=== PATIENT | female | born 1985 | race Caucasian/White ===

== ENCOUNTER → 2020-10-29 09:24 | Outpatient (BNVA) | payer OTHER, SELFPAY | PROVIDERS: PCP Family Medicine Adult Medicine; Visit Provider Surgery ==

== ENCOUNTER 2020-11-19 10:58 | Outpatient (REF) | payer OTHER, SELFPAY ==
--- NOTE | ~2020-11-19 | MR_ITS ---
EXAMINATION: MR BREAST WITHOUT AND WITH CONTRAST, BILATERAL CLINICAL INFORMATION: High risk screening. COMPARISON: Portions of a previous study 11/22/2019 Mammography (nondiagnostic monitor review): 11/24/2019. TECHNIQUE: A 1.5 T system and a dedicated breast coil. T1-weighted sequences without fat-saturation were obtained prior to the administration of contrast. Fat-saturated T1 and T2-weighted sequences were also acquired. The patient received 10 mL of IV gadolinium-based contrast, Gadavist. Multiple sequential dynamic T1-weighted sequences were obtained through both breasts with fat-saturation. Subtracted images were reviewed. CAD postprocessing with 3-D reconstructions, maximum intensity projections and kinetic analysis was performed by the interpreting Radiologist at an independent workstation and reviewed as a portion of this exam. The patient reported slight nausea without vomiting after the injection. FINDINGS: Amount of Remaining Fibroglandular Signal: There are scattered areas of fibroglandular tissue (ACR BI-RADS breast composition category B).* Background Parenchymal Enhancement: Mild Symmetry of Background Enhancement: Symmetric RIGHT BREAST: There are no suspicious findings. Masses: There are no suspicious enhancing masses. Non-mass Enhancement: There is no suspicious non-mass enhancement. Focus: There are no suspicious enhancing foci. Non-enhancing Findings: Associated Findings: There are no suspicious associated findings. Kinetic Curve Assessment: Initial Phase: There are no suspicious areas of color signal. Delayed Phase: There are no areas of washout kinetics. LEFT BREAST: There are no suspicious findings. Masses: There are no suspicious enhancing masses. Non-mass Enhancement: There is no suspicious non-mass enhancement. Focus: There are no suspicious enhancing foci. Non-enhancing Findings: Associated Findings: There are no suspicious associated findings. Kinetic Curve Assessment: Initial Phase: There are no areas of suspicious color signal. Delayed Phase: There are no areas of washout kinetics. The axillary lymph nodes are morphologically normal. No suspicious internal mammary lymph nodes are seen. No suspicious abnormality in the visualized portions of chest or abdomen. There may be a small cyst or ganglion in the right spinal glenoid notch. MR/MR breast BI wo/w con IMPRESSION: No MR evidence of malignancy. ASSESSMENT: Right Breast: ACR BI-RADS 1: Negative examination. Left Breast: ACR BI-RADS 1: Negative examination. RECOMMENDATIONS: Continue screening.
== END 2020-11-19 10:59 | disposition home or self-care (01) ==
LOC: HO.MRI 10:58
PROVIDERS: Visit Provider Surgery
DX: Z12.39 Encounter for other screening for malignant neoplasm of breast (principal); Z91.89 Other specified personal risk factors, not elsewhere classified
CPT/HCPCS: 77049; A9585

== ENCOUNTER 2021-02-25 09:47 | Outpatient (REF) | payer OTHER, SELFPAY ==
--- NOTE | ~2021-02-25 | MM_ITS ---
EXAMINATION: MM SCREENING DIGITAL BREAST TOMOSYNTHESIS, BILATERAL CLINICAL INFORMATION: Screening. Asymptomatic. Family history breast cancer, 2 aunts, one premenopausal age 40. The lifetime risk of breast cancer based on the Tyrer-Cuzick Model is 19%. COMPARISON: Mammography: 11/24/2019; MRI breasts 11/19/2020 TECHNIQUE: Digital breast tomosynthesis is performed in both the craniocaudal and mediolateral oblique views along with computer-aided detection (CAD). Synthesized 2D images are generated from the tomosynthesis. FINDINGS: There are scattered areas of fibroglandular density (ACR BI-RADS breast composition Category b). Parenchymal pattern is similar to prior exam. There is no significant mass or architectural abnormality or abnormal calcifications. The axilla and skin contours are unremarkable. MM/MM tomosynthesis screening BI IMPRESSION: No mammographic evidence of malignancy. ASSESSMENT: BI-RADS 1: Negative RECOMMENDATION: Routine annual mammography screening. This patient's information was entered into a reminder system with a target due date for their next mammogram.
== END 2021-02-25 09:48 | disposition home or self-care (01) ==
LOC: HO.MAMMO 09:47
PROVIDERS: Visit Provider Surgery
DX: Z12.31 Encounter for screening mammogram for malignant neoplasm of breast (principal)
CPT/HCPCS: 77063; 77067

== ENCOUNTER → 2021-11-25 10:41 | Outpatient (BNVA) | payer OTHER, SELFPAY | PROVIDERS: Visit Provider Surgery | DX: Z12.39 Encounter for other screening for malignant neoplasm of breast (principal); Z91.89 Other specified personal risk factors, not elsewhere classified ==

== ENCOUNTER 2022-01-07 13:19 | Outpatient (REF) | payer OTHER, SELFPAY ==
--- NOTE | ~2022-01-07 | MR_ITS ---
EXAMINATION: MR BREAST WITHOUT AND WITH CONTRAST, BILATERAL CLINICAL INFORMATION: 36-year-old for high-risk screening family history 2 aunts. COMPARISON: MRI 11/19/2020, 11/22/2019 and 11/10/2018. TECHNIQUE: Imaging was performed with a dedicated breast coil. Prior to the administration of contrast, bilateral axial T1 and bilateral axial T2 weighted sequences were obtained. After the uneventful administration of?9 mL of Gadavist, dynamic contrast-enhanced VIBRANT series through the breasts in the axial plane were performed. Subtracted images were performed and reviewed. A delayed sagittal sequence through both breasts was acquired. Additionally, CAD post-processing, including maximum intensity projections, 3-D reconstructions and kinetic analysis, were performed an independent workstation and reviewed by the interpreting radiologist is a portion of this exam. FINDINGS: The patient's fibroglandular tissue demonstrates minimal background enhancement. LEFT BREAST: There is a stable focus of enhancement at 9 o'clock 6.4 cm from the nipple. There are a few other scattered enhancing foci, which appear stable from prior studies. There are no new areas of mass or nonmass enhancement suspicious of malignancy. There are no secondary signs of malignancy such as nipple inversion or duct enhancement. There are no additional findings on T2-weighted imaging or kinetic curve analysis. RIGHT BREAST: There are a few scattered foci of enhancement also stable when compared to prior studies. The mildly prominent area of nonmass enhancement at 2 o'clock noted on the study of 11/22/2019 is not perceived at this time. There are no new areas of mass or nonmass enhancement suspicious of malignancy. There are no secondary signs of malignancy such as nipple inversion or duct enhancement. There are no additional findings on T2-weighted imaging or kinetic curve analysis. There is no suspicious internal mammary chain or axillary adenopathy. Limited views of the chest and abdomen are unremarkable. MR/MR breast BI wo/w con IMPRESSION: No MR specific evidence of malignancy. ASSESSMENT: LEFT BREAST: BI-RADS 2 benign. RIGHT BREAST: BI-RADS 2 benign. RECOMMENDATIONS: Routine mammographic imaging as per most recent study and MRI as per high-risk protocol.
== END 2022-01-07 13:20 | disposition home or self-care (01) ==
LOC: HO.MRI 13:19
PROVIDERS: Visit Provider Surgery
DX: Z91.89 Other specified personal risk factors, not elsewhere classified (principal); Z80.3 Family history of malignant neoplasm of breast
CPT/HCPCS: 77049; A9585

== ENCOUNTER 2022-03-12 07:50 | Outpatient (REF) | payer OTHER, SELFPAY ==
--- NOTE | ~2022-03-12 | MM_ITS ---
EXAMINATION: MM SCREENING DIGITAL BREAST TOMOSYNTHESIS, BILATERAL CLINICAL INFORMATION: Screening. Asymptomatic. The lifetime risk of breast cancer based on the Tyrer-Cuzick Model is 14%. COMPARISON: Mammography: 02/25/2021, 11/24/2019; MR bilateral breasts 01/07/2022 TECHNIQUE: Digital breast tomosynthesis is performed in both the craniocaudal and mediolateral oblique views along with computer-aided detection (CAD). Synthesized 2D images are generated from the tomosynthesis. Additional bilateral CC views are provided. FINDINGS: There are scattered areas of fibroglandular density (ACR BI-RADS breast composition Category b). There are no significant masses, abnormal calcifications, or other abnormalities. There is no developing density or architectural abnormality. The axilla and skin contours are unremarkable. No significant changes. MM/MM tomosynthesis screening BI IMPRESSION: No mammographic evidence of malignancy. ASSESSMENT: BI-RADS 1: Negative RECOMMENDATION: Routine annual mammography screening. This patient's information was entered into a reminder system with a target due date for their next mammogram.
== END 2022-03-12 07:51 | disposition home or self-care (01) ==
LOC: HO.MAMMO 07:50
PROVIDERS: PCP Surgery; Visit Provider Surgery
DX: Z12.31 Encounter for screening mammogram for malignant neoplasm of breast (principal)
CPT/HCPCS: 77063; 77067

== ENCOUNTER 2022-04-29 08:46 | Outpatient (REF) | payer OTHER, SELFPAY ==
[2022-04-29 10:28] LABS: Hematocrit 37.4 % (37.0-47.0); Hemoglobin 12.5 g/dl (12.0-16.0); Mean Corpuscular HGB Conc 33.4 g/dl (31.0-35.0); Mean Corpuscular Hemoglobin 30.5 pg (27.0-33.0); Mean Corpuscular Volume 91.2 fL (80.0-98.0); Mean Platelet Volume 11.9 fL (9.4-12.3); Platelet Count 193 X10*3/uL (160-400); Red Cell Distribution Width 12.6 % (11.0-16.0); White Blood Count 7.1 X10*3/uL (4.8-10.8)
[2022-04-29 10:46] LABS: Alanine Aminotransferase 8 U/L (0-31); Albumin Level 4.1 g/dL (3.5-5.0); Alkaline Phosphatase 54 U/L (39-117); Anion Gap 13 (12-20); Aspartate Amino Transferase 12 U/L (5-31); Bilirubin Total 0.4 mg/dL (0.0-1.0); Blood Urea Nitrogen 12 mg/dL (9-16); Calcium 9.2 mg/dL (8.4-10.2); Carbon Dioxide 26 mmol/L (22-29); Chloride 104 mmol/L (96-108); Cholesterol 227 mg/dL; Estimated Glomerular Filt Rate > 60; Glucose Fasting 95 mg/dL (60-99); HDL Cholesterol 51 mg/dL; LDL Cholesterol Calculated 163 mg/dl; Potassium 4.2 mmol/L (3.3-5.1); Sodium 139 mmol/L (135-145); Total Protein 6.7 g/dL (6.5-8.0); Triglycerides 66 mg/dL
[2022-04-29 11:08] LABS: TSH reflex Free T4 1.37 uIU/mL (0.32-4.0)
== END 2022-04-29 08:47 | disposition home or self-care (01) ==
LOC: HO.WFDLDS 08:46
PROVIDERS: Visit Provider Hospitalist
DX: Z00.00 Encounter for general adult medical examination without abnormal findings (principal)
CPT/HCPCS: 36415; 80053; 80061; 84443; 85027

== ENCOUNTER → 2022-12-17 13:48 | Outpatient (BNVA) | payer OTHER, SELFPAY | PROVIDERS: PCP Hospitalist; Visit Provider Surgery | DX: Z13.89 Encounter for screening for other disorder (principal) ==

== ENCOUNTER 2023-07-08 09:29 | Outpatient (AMB) | payer OTHER, SELFPAY ==
--- NOTE | 2023-07-08 09:50 | A.OFFVIS_ITS ---
Intake Vital Signs 07/08/23 09:57 Height 5 ft Weight 213 lb BMI 41.6 BP 124/56 L Blood Pressure Location Lt brachial Position Sitting Pulse 51 Intake Visit Reasons: 6 month breast exam Intake Note: Patient is seen in office for 6 month follow up visit, breast exam. Patient c/o: has mammogram scheduled for 11/2023 did not have one this year since she was nursing, denies any concerns regarding the breast Claim Attorney Required: No Accompanied by: Self / Same As Patient Allergies amoxicillin Allergy (Unknown, Verified 07/08/23 09:57) rash naproxen Allergy (Unknown, Unverified 07/08/23 09:57) asthma exacerbation Latex Allergy (Unknown, Uncoded 07/08/23 09:57) Unknown Medication List - Last Reconciled 07/08/23 by Myron Arredondo MD No Known Home Meds HPI HPI Comments History of Present Illness Details 38-year-old female patient of Dr. Janki ramires and Dr. Cedeño presenting for a high risk breast screening examination.? Her lifetime risk based upon Tyrnelly Piedrak was determined to be at 28.3%, therefore she was placed on a high risk protocol.? Her paternal aunt was diagnosed with breast cancer at the age of 40, and a 2nd paternal aunt was diagnosed with malignant melanoma at the age of 17 and she was also diagnosed recently with cancer of the eye, and 2 maternal great aunts were diagnosed with breast cancer at the ages of 60 and 80 respectively.? Genetic testing on her paternal aunt with breast cancer revealed no deleterious? 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 The patient has never undergone genetic testing. Patient underwent routine mammography on 03/12/2022 which revealed no mammographic evidence of malignancy (BI-RADS 1).? Bilateral breast MRI performed on 01/07/2022 revealed no concerning MR findings (BiRADS 2). She delivered her baby 1 month early due to preeclampsia (5 lb) and is not undergone mammogram or MRI as she was nursing up until recently. She is scheduled for a mammogram 11/11/2023. She is due for a breast MRI as well. She feels well and denies any ongoing breast symptoms. Her baby is now 8-month-old and doing well. [facility] Medical History At high risk for breast cancer Surgical History History of section History of ankle surgery (2006) Family History Father No problems noted. 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 Current occupational exposures/hazards: No Cognitive needs: No Hearing needs: No Vision needs: No Review of Systems Const Denies chills, Denies fever(s), Denies headache(s) and Denies poor appetite ENT Denies dizziness and Denies headache(s) Card Denies chest pain, Denies rapid heart rate, Denies palpitations and Denies slow heart rate Resp Denies chest congestion, Denies cough, Denies pain on inspiration and Denies wheezing GI Denies abdominal pain, Denies bloating, Denies change in stool character, Denies constipation, Denies diarrhea, Denies nausea, Denies vomiting and Denies hematemesis Denies nipple discharge Musc Denies back pain, Denies arthralgias, Denies joint swelling and Denies numbness Skin/Breast Denies breast swelling, Denies breast skin changes, Denies breast pain, Denies breast mass, Denies change in breast shape, Denies change in pigmentation, Denies nipple discharge, Denies erythema and Denies rash Neuro Denies dizziness, Denies headache(s) and Denies numbness Psych Denies anxiety and Denies depression Endo Denies palpitations Rashi/Lymph Denies easy bleeding, Denies easy bruising and Denies lymphadenopathy Aller/Immun Denies wheezing Physical Exam Vital Signs: Last Vital Signs Pulse 51 07/08/23 09:57 BP 124/56 L 07/08/23 09:57 BMI result Body Mass Index 41.6 Const General: cooperative, healthy appearing, comfortable, no acute distress and well developed Orientation/consciousness: patient oriented x3 Eyes Sclerae: sclerae normal EOM: EOMs intact bilaterally Chest Other: Left breast: No skin change, no nipple retraction, no nipple discharge, no palpable mass, no enlarged lymph nodes. Breast tissue is dense. Right breast: No skin change, no nipple retraction, no nipple discharge, no pal pable mass, no enlarged lymph nodes. Breast tissue is dense. Resp Effort & Inspection: normal respiratory effort, no stridor and not tachypneic Cardio Jugular venous distension: no JVD GI Inspection: Yes normal to inspection Skin General skin exam: no rashes or lesions noted, dry skin and no erythema Neuro General: patient oriented x3 and gait normal Extrem General: Yes no clubbing, cyanosis or edema Assessment & Plan Assessment & Plan (1) At high risk for breast cancer: Code(s): Z91.89 - Other specified personal risk factors, not elsewhere classified Plan: 38-year-old female patient felt to be at high risk for malignancy of the breast presenting today for a screening breast examination. Examination today reveals no suspicious findings in either breast. She is now due for her yearly mammogram and MRI. A mammogram has been scheduled for 11/11/2023. I will also place an order for a breast MRI. I also discussed genetic testing including the risks and benefits and she is agreeable to this. She will return for this testing at her earliest convenience. She should continue her monthly self examination and return in 6 months for follow-up breast examination, sooner p.r.n.. Orders: Orders MR breast BI wo/w con Today Z91.89 - Other specified personal risk factors, not elsewhere classified Coding Level of Care Code Est Pt Level 3 (98156) Diagnoses At high risk for breast cancer Z91.89
[2023-07-08 09:57] VITALS: BP 124/56; PULSE 51; BMI 41.6
== END 2023-07-08 10:18 | disposition home or self-care (01) ==
PROVIDERS: PCP Hospitalist; Visit Provider Surgery
DX: Z80.3 Family history of malignant neoplasm of breast (principal); Z91.89 Other specified personal risk factors, not elsewhere classified
CPT/HCPCS: 99213

== ENCOUNTER → 2023-07-08 09:29 | Outpatient (BNVA) | payer OTHER, SELFPAY | PROVIDERS: PCP Hospitalist; Visit Provider Surgery ==

== ENCOUNTER 2023-07-22 14:43 | Outpatient (AMB) | payer OTHER, SELFPAY ==
--- NOTE | 2023-07-22 14:46 | A.OFFPC_ITS ---
Vital Signs 07/22/23 14:47 Height 5 ft Weight 213 lb 8 oz BMI 41.7 BP 124/70 Blood Pressure Location Lt brachial Position Sitting Respiration 12 Pulse 80 Pulse Source Pulse Oximeter Temp 97.6 F Temp Source Temporal Artery Scan Pulse Oximetry (%) 99 Oxygen Delivery Method Room Air Intake Visit Reasons: Transfer of care, req PE Flame Hardener Required: No Accompanied by: Self / Same As Patient Allergies amoxicillin Allergy (Unknown, Verified 07/22/23 15:24) rash naproxen Allergy (Unknown, Verified 07/22/23 15:24) asthma exacerbation Latex Allergy (Unknown, Uncoded 07/22/23 15:24) Unknown Medication List - Last Reconciled 07/22/23 by Bin Urbina CNP No Known Home Meds Tobacco use date assessed: 07/22/23 Dental Screening Dental Screen Date: 07/22/23 Did you have a dental visit in the last 12 months?: Yes Did you have a dental problem in the last 6 months where you did not have access to dental care?: No Was dental information given to patient?: Patient has dentist HPI HPI Comments History of Present Illness Details 38-year-old female presents for transfer of care Her former PCP was CHASTITY who is no longer with the practice. Her last office visit and blood work was over a year ago Reports h/o asthma (severe at childhood) and preeclampsia Not on prescription medications She offers no complaints and denies acute symptoms at this time She notes that she has not been making healthy dietary choices. She has not been exercising due to her busy work schedule History of breast cancer on both sides of her family which put her at high risk for breast cancer. Her last mammogram and breasts MRI was in 2021: Normal. Her next mammogram and breasts MRI is in 10/2022 [facility] Medical History (Updated 07/22/23 @ 15:33 by Bin Urbina CNP) Asthma Preeclampsia At high risk for breast cancer Surgical History History of section History of ankle surgery (2006) Family History Father No problems noted. 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 1. Little interest or pleasure in doing things: not at all 2. Feeling down, depressed, or hopeless: not at all 3. Trouble falling or staying asleep, or sleeping too much: not at all 4. Feeling tired or having little energy: not at all 5. Poor appetite or overeating: not at all 6. Feeling bad about yourself - or that you are a failure or have let yourself or your family down: not at all 7. Trouble concentrating on things, such as reading the newspaper or watching television: not at all 8. Moving or speaking so slowly that other people could have noticed. Or the opposite - being so fidgety or restless that you have been moving around a lot more than usual: not at all 9. Thoughts that you would be better off or of hurting yourself in some way: not at all Total score: 0 Depression Screening Interpretation: Negative Depression Screening Done: Yes 68113 - PHQ-9 Billing: Yes Source: Developed by Drs. Silviano Queen, Jackie Mansfield, Moises Headley and colleagues, with an educational daxa from [employer]. Thrive Questionnaire Date Thrive assessed: 07/22/23 I am a: Patient What is your living situation today?: I have a steady place to live Within the past 12 months, did the food you bought not last and you didn't have the money to get more?: Never true Within the past 12 months, did you worry whether your food would run out before you got money to buy more?: Never true Do you have trouble paying for medicines?: No Do you have trouble getting transportation to medical appointments?: No Do you have trouble paying your heating and electricity bill?: No Do you have trouble taking care of your child, family member or friend?: No Do you have trouble with day-to-day activities such as bathing, preparing meals, shopping, managing finances, etc.?: No Are you currently unemployed and looking for a job?: No Are you interested in more education?: Yes Please select the resources that you would like help with: Education Currently or been in a relationship where the following occur: no concerns reported AUDIT C Alcohol Use Questionnaire (AUDIT-C) 1. How often do you have a drink containing alcohol?: Never 3. How often do you have six or more drinks on one occasion?: Never Total Score: 0 CARL-7 AMB Questionnaire CARL-7 Date CARL - 7 assessed: 07/22/23 Feeling nervous, anxious, or on edge: 0 = Not at all Not being able to stop or control worryin = Not at all Worrying too much about different things: 0 = Not at all Trouble relaxin = Not at all Being so restless that it is hard to sit still: 0 = Not at all Becoming easily annoyed or irritable: 0 = Not at all Feeling afraid as if something awful might happen: 0 = Not at all Total CARL-7 score (0-4 normal; 5-9 mild; 10-14 moderate; 15-21 severe): 0 Source: Developed by Drs. Silviano Queen, Jackie Mansfield, Moises Headley and colleagues, with an educational daxa from [employer]. CARL-7 Assessment Billing CARL-7 Assessment Tool: CARL-7 Assessment 91913 ACT Questionnaire In the past 4 weeks, how much of the time did your asthma keep you from getting as much done at work, school or at home?: None of the time During the past 4 weeks, how often have you had shortness of breath?: Not at all During the past 4 weeks, how often did your asthma symptoms wake you up at night or earlier than usual in the morning?: Not at all During the past 4 weeks, how often have you had to use your rescue inhaler or nebulizer medication?: Not at all How would you rate your asthma control during the past 4 weeks?: Completely controlled ACT Interpretation: Negative Score: 25 Review of Systems Const Details: Denies chills, Denies fatigue, Denies fever(s), Denies headache(s) and Denies weakness HEENT Denies change in vision, Denies dizziness, Denies headache(s), Denies hearing loss, Denies nasal congestion, Denies sinus pain, Denies sinus pressure and Denies sore throat Card Denies chest pain, Denies lightheadedness, Denies dyspnea and Denies other (palpitations) Resp Denies cough, Denies dyspnea and Denies wheezing GI Denies abdominal pain, Denies melena, Denies hematochezia, Denies change in bowel habits, Denies dyspepsia and Denies nausea Denies hematuria and Denies dysuria Musc Denies abnormal gait, Denies myalgias, Denies arthralgias, Denies numbness and Denies tingling Skin/Breast Denies rash, Denies unusual bruising and Denies wounds Neuro Denies abnormal gait, Denies dizziness, Denies headache(s), Denies memory loss, Denies numbness, Denies Sensory deficit (Neuro), Denies tingling and Denies weakness Psych Denies anxiety, Denies depression and Denies memory loss Endo Denies cold intolerance, Denies fatigue, Denies heat intolerance, Denies polydipsia and Denies polyuria Rashi/Lymph Denies easy bleeding and Denies easy bruising Aller/Immun Denies wheezing Physical exam (Primary Care) Vital Signs: Last Vital Signs Temp 97.6 F 07/22/23 14:47 Pulse 80 07/22/23 14:47 Resp 12 07/22/23 14:47 BP 124/70 07/22/23 14:47 Pulse Ox 99 07/22/23 14:47 Oxygen Delivery Method Room Air 07/22/23 14:47 BMI result Body Mass Index 41.7 Tobacco/Smoking Status: Tobacco use Status Tobacco use date assessed 07/22/23 07/22/23 15:00 Patient Tobacco Use Status Former Tobacco user 07/22/23 15:00 Tobacco use type Cigarette 07/22/23 15:00 e-Cigarette/Vaping Use Never Used 07/22/23 15:00 PHQ-9: PHQ-9 Score PHQ-9: Total score 0 07/22/23 15:00 Depression Screening Interpretation: Negative Thrive Assessment: Date of Thrive Assessment Date Thrive assessed 07/22/23 07/22/23 15:00 Currently or been in a relationship where the following occur: no concerns reported Const Other: General: no acute distress, well developed, alert and awake Nutritional Appearance: well nourished Orientation/consciousness: patient oriented x3 [facility] Head: Yes normocephalic and Yes atraumatic Ears: hearing grossly normal bilaterally and TM's normal bilaterally General nose exam: Normal external nose present and Normal nares present Mouth: Normal oral and palatal mucosa present and moist mucous membranes Teeth and gingiva: dentition normal Throat: Yes oropharynx normal Eyes Pupils: Equal, round and reactive pupils present and Pupil accommodation reflex normal EOM: EOMs intact bilaterally Neck Neck: Yes normal visual inspection, Yes no lymphadenopathy and Yes trachea midline Thyroid: Thyroid normal Carotids: no bruits Lymphatic: no lymphadenopathy noted Chest Chest palpation & inspection: normal inspection of the chest Resp Effort & Inspection: normal respiratory effort Auscultation: clear to auscultation bilaterally Cardio Rate: regular rate Rhythm: regular rhythm Heart sounds: S1 normal heart sound present, S2 normal heart sound present, no gallops, no murmurs and no rubs Bruits: no abdominal aortic bruits and no carotid bruits GI Palpation (GI): No Abdominal aortic bruit present, Soft to palpation, nontender, No hepatosplenomegaly present and No Rebound tenderness present Auscultation: normal bowel sounds General: Yes no CVA tenderness Back/Spine/Pelvis Back: no CVA tenderness Cervical Spine: cervical ROM normal and No Cervical spine tenderness Thoracic/Lumbar Spine: thoraco-lumbar ROM normal, No pain with thoraco-lumbar ROM, No thoracic spinal tenderness and No lumbar spinal tenderness Skin General: warm and dry. Normal skin color. Normal skin turgor Lesions: no lesions Rashes: no rashes Trauma: no lacerations or abrasions Wounds: no wounds Nails: normal Neuro General: patient oriented x3, gait normal and CN's II-XI intact bilaterally Cranial nerves: Yes Equal, round and reactive pupils present Cognition (Neuro): normal cognition Gait exam (Neuro): Normal gait present Motor exam (neuro): 5/5 motor strength present throughout Sensory Exam: No Sensory deficit (Neuro) Deep tendon reflexes (DTR's): Right patellar reflex intensity grade: 2+ and Left patellar reflex intensity grade: 2+ Extrem General: Yes normal to inspection, No edema and No calf tenderness Psych Appearance: grossly normal Affect: normal affect Attitude: cooperative Thought process: Normal thought process present Assessment and Plan Assessment & Plan (1) Normal physical exam: Code(s): Z00.00 - Encounter for general adult medical examination without abnormal findings Plan: No significant physical restrictions or limitations noted Advised to get routine fasting blood work done and schedule a telehealth visit in 2-4 weeks for labs review Return with symptoms or concerns Verbalized understanding and agreed with treatment plan (2) Morbid obesity with BMI of 40.0-44.9, adult: Code(s): E66.01 - Morbid (severe) obesity due to excess calories; Z68.41 - Body mass index [BMI] 40.0-44.9, adult Plan: She weighs 213 lb, BMI is 41.7 She has not been making healthy dietary choices or exercising Declines referral to dietitian/nutritionis or weight management Healthy diet and routine exercise encouraged She make contact her PCP if she needs assistance with weight loss Verbalized understanding and agreed with plan. (3) Laboratory tests ordered as part of a complete physical exam (CPE): Code(s): Z00.00 - Encounter for general adult medical examination without abnormal findings Plan: Fasting labs ordered as part of a complete physical exam. Advised to fast for at least 10 hours before getting labs drawn. May drink water Verbalized understanding and agreed with treatment plan. Orders: Orders Complete Blood Count Auto Diff Today Z00.00 - Encounter for general adult medical examination without abnormal findings Comprehensive [place]. Panel Fast Today Z00.00 - Encounter for general adult medical examination without abnormal findings Lipid Panel Today Z00.00 - Encounter for general adult medical examination without abnormal findings TSH reflex Free T4 Today Z00.00 - Encounter for general adult medical examination without abnormal findings UA CC w/rflx Micro + Cult Today Z00.00 - Encounter for general adult medical examination without abnormal findings Coding Level of Care Code Est Pt Prev Care [id number]([id number]) Diagnoses Normal physical exam Z00.00 Morbid obesity with BMI of 40.0-44.9, adult E66.01; Z68.41 Laboratory tests ordered as part of a complete physical exam (CPE) Z00.00 Additional Codes CARL-7 Assessment Billing - CARL-7 Assessment Tool: CARL-7 Assessment 99996 ([id number])
[2023-07-22 14:47] VITALS: BP 124/70; PULSE 80; RESP 12; TEMP 36.4; O2SAT 99; BMI 41.7
== END 2023-07-22 15:28 | disposition home or self-care (01) ==
PROVIDERS: PCP Hospitalist; Visit Provider Nurse Practitioner Family
DX: Z00.00 Encounter for general adult medical examination without abnormal findings (principal); E66.01 Morbid (severe) obesity due to excess calories; Z68.41 Body mass index [BMI] 40.0-44.9, adult
CPT/HCPCS: 99395

== ENCOUNTER 2023-08-16 10:48 | Outpatient (REF) | payer OTHER, SELFPAY ==
[2023-08-16 14:11] LABS: MANUAL DIFF FLAG NO
[2023-08-16 14:14] LABS: Appearance Urine Turbid; Color Urine Yellow; Glucose Urine UA Negative (Negative); Leukocyte Esterase Urine Negative (Negative); Nitrite Urine Negative (Negative); UMIC TRIGGER UACC YES; Urine Blood Large (3+) (Negative); Urine Ketones Negative (Negative); Urine Protein 30 (1+) mg/dL (Neg-Trace)
[2023-08-16 14:16] LABS: Basophils Percent Auto 0.4 % (0-2); Eosinophils Absolute Auto 0.1 X10*3/uL (0.0-0.4); Eosinophils Percent Auto 1.8 % (0-4); Hemoglobin 12.7 g/dl (12.0-16.0); Imm Gran Abs Auto 0.02 X10*3/uL (0.00-0.03); Imm Gran Pct Auto 0.3 % (0.0-0.4); Lymphocytes Absolute Auto 2.9 X10*3/uL (1.2-4.9); Lymphocytes Percent Auto 36.9 % (20-40); Mean Corpuscular HGB Conc 33.4 g/dl (31.0-35.0); Mean Corpuscular Hemoglobin 29.5 pg (27.0-33.0); Mean Corpuscular Volume 88.4 fL (80.0-98.0); Mean Platelet Volume 11.6 fL (9.4-12.3); Monocytes Absolute Auto 0.4 X10*3/uL (0.1-1.2); Monocytes Percent Auto 4.8 % (2-11); Neutrophils Absolute Auto 4.4 x10*3/uL (2.0-8.3); Neutrophils Percent Auto 55.8 % (45-73); Platelet Count 223 X10*3/uL (160-400); Red Cell Distribution Width 12.8 % (11.0-16.0); White Blood Count 7.8 X10*3/uL (4.8-10.8)
[2023-08-16 14:17] LABS: Bacteria Urine None Seen (None Seen); Hyaline Casts Urine 0-2 /LPF (0-2); RBC Urine >20 /HPF (0-2); Squamous Epithelial Cell Urine 0-2 /HPF (0-2); WBC Urine 0-5 /HPF (0-5)
[2023-08-16 14:50] LABS: Alanine Aminotransferase 33 U/L (0-31); Albumin Level 4.3 g/dL (3.5-5.0); Alkaline Phosphatase 81 U/L (39-117); Anion Gap 17 (12-20); Aspartate Amino Transferase 23 U/L (5-31); Bilirubin Total 0.4 mg/dL (0.0-1.0); Blood Urea Nitrogen 15 mg/dL (9-16); Calcium 9.8 mg/dL (8.4-10.2); Carbon Dioxide 23 mmol/L (22-29); Chloride 103 mmol/L (96-108); Cholesterol 225 mg/dL (<200); Estimated Glomerular Filt Rate > 60; Glucose Fasting 129 mg/dL (60-99); HDL Cholesterol 49 mg/dL (>40); LDL Cholesterol Calculated 149 mg/dL (<100); Potassium 4.1 mmol/L (3.3-5.1); Sodium 139 mmol/L (135-145); Total Protein 7.7 g/dL (6.5-8.0); Triglycerides 135 mg/dL (<150)
[2023-08-16 15:05] LABS: TSH reflex Free T4 0.02 uIU/mL (0.32-4.0)
[2023-08-16 16:18] LABS: Free T4 (Free Thyroxine) 0.89 ng/dL (0.71-1.85)
== END 2023-08-16 10:49 | disposition home or self-care (01) ==
LOC: HO.WFDLDS 10:48
PROVIDERS: Visit Provider Nurse Practitioner Family
DX: Z00.00 Encounter for general adult medical examination without abnormal findings (principal)
CPT/HCPCS: 36415; 80053; 80061; 81001; 84439; 84443; 85025

== ENCOUNTER → 2023-08-16 16:43 | Outpatient (AMB) | payer OTHER, SELFPAY ==
--- NOTE | 2023-08-16 16:09 | A.OFFPC_ITS ---
Intake Visit Reasons: lab review Heel Curver Required: No Allergies amoxicillin Allergy (Unknown, Verified 08/16/23 16:11) rash naproxen Allergy (Unknown, Verified 08/16/23 16:11) asthma exacerbation Latex Allergy (Unknown, Uncoded 07/22/23 15:24) Unknown Tobacco use date assessed: 07/22/23 HPI HPI Comments History of Present Illness Details This is a telephonic telehealth visit for review of recent blood work. Patient had urinalysis and blood work done today She offers no complaints and denies acute symptoms. [facility] Medical History (Updated 08/16/23 @ 16:26 by Bin Urbina CNP) Asthma Preeclampsia At high risk for breast cancer Surgical History History of section History of ankle surgery (2006) Family History Father No problems noted. 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 Silviano Queen, Jackie Mansfield, Moises Headley and colleagues, with an educational daxa from [employer]. Review of Systems Const Details: Const Denies chills, Denies fatigue, Denies fever(s), Denies headache(s) and Denies weakness ENT Denies dizziness and Denies headache(s) Card Denies chest pain, Denies lightheadedness, Denies dyspnea and Denies other (Palpitations) Resp Denies cough, Denies dyspnea, Denies wheezing and Denies other ( shortness of breath) GI Denies abdominal pain, Denies melena, Denies hematochezia, Denies change in bowel habits, Denies dyspepsia and Denies nausea Denies hematuria and Denies dysuria Musc Denies abnormal gait, Denies myalgias, Denies arthralgias, Denies numbness and Denies tingling Skin/Breast Denies rash, Denies unusual bruising and Denies wounds Neuro Denies abnormal gait, Denies dizziness, Denies headache(s), Denies memory loss, Denies numbness, Denies Sensory deficit (Neuro), Denies tingling and Denies weakness Psych Denies anxiety, Denies depression, Denies memory loss Endo Denies cold intolerance, Denies fatigue, Denies heat intolerance, Denies polydipsia and Denies polyuria Aller/Immun Denies wheezing Physical exam (Primary Care) Tobacco/Smoking Status: Tobacco use Status Tobacco use date assessed 07/22/23 08/16/23 16:09 Patient Tobacco Use Status Former Tobacco user 08/16/23 16:09 Tobacco use type Cigarette 08/16/23 16:09 e-Cigarette/Vaping Use Never Used 08/16/23 16:09 Thrive Assessment: Date of Thrive Assessment Date Thrive assessed 07/22/23 08/16/23 16:09 Const Other: Telehealth visit. No physical exam Telehealth Telehealth Location of provider rendering services: practice address Location of patient: address on file Patient Identification confirmed using: Name, : Yes Telehealth method: voice only Patient verbally consented to treatment: Yes Patient verbally consented to billing insurance company: Yes Patient informed of any privacy concerns related to visit: Yes Assessment and Plan Assessment & Plan (1) Elevated fasting glucose: Code(s): R73.01 - Impaired fasting glucose Plan: Recent labs reviewed with patient Urinalysis is unrevealing Fasting glucose is elevated, 129 Reports history of gestational diabetes 9 months ago, she was monitored without treatment Will repeat fasting glucose. Advised to fast for 10-12 hours, may drink water only, and get blood work done before her next visit Follow-up in 1 month or return sooner with symptoms or concerns Verbalized understanding and agreed with the plan (2) Subclinical hyperthyroidism: Code(s): E05.90 - Thyrotoxicosis, unspecified without thyrotoxic crisis or storm Plan: Recent TSH level is low, 0.02 No acute symptoms Will recheck TSH level. Advised to get blood work done before next visit Follow-up in 1 month or return sooner with symptoms or concerns Verbalized understanding and agreed with treatment plan (3) Hypercholesterolemia: Code(s): E78.00 - Pure hypercholesterolemia, unspecified Plan: Recent total cholesterol and LDL are elevated, 225 and 149 respectively Reports family history of hyperlipidemia Advised to limit foods high in saturated fat and avoid foods high trans fat Routine exercise encouraged Will recheck lipid levels in 3 months Verbalized understanding and agreed with treatment plan (4) Elevated ALT measurement: Code(s): R74.01 - Elevation of levels of liver transaminase levels Plan: Recent ALT level is slightly elevated, 33 She does not drink alcohol Likely fatty liver disease Will recheck liver panel and make changes as needed. Advised to fast for 10-12 hours and get blood work done before her next visit Follow-up in 1 month Verbalized understanding and agreed with treatment plan Orders: Orders TSH reflex Free T4 Today E05.90 - Thyrotoxicosis, unspecified without thyrotoxic crisis or storm Glucose Fasting Today R73.01 - Impaired fasting glucose Liver Panel Today R74.01 - Elevation of levels of liver transaminase levels Coding Level of Care Code Est Pt Level 2 (30959) Diagnoses Elevated fasting glucose R73.01 Subclinical hyperthyroidism E05.90 Hypercholesterolemia E78.00 Elevated ALT measurement R74.01 Time Spent (min) 15
== END | disposition home or self-care (01) ==
LOC: HO.HMGFM 16:14
PROVIDERS: PCP Hospitalist; Visit Provider Nurse Practitioner Family
DX: R73.01 Impaired fasting glucose (principal); E05.90 Thyrotoxicosis, unspecified without thyrotoxic crisis or storm; E78.00 Pure hypercholesterolemia, unspecified; R74.01 Elevation of levels of liver transaminase levels
CPT/HCPCS: 99212

== ENCOUNTER → 2023-08-20 12:39 | Outpatient (BNVA) | payer OTHER, SELFPAY | PROVIDERS: PCP Hospitalist; Visit Provider Surgery ==

== ENCOUNTER 2023-09-16 08:06 | Outpatient (REF) | payer OTHER, SELFPAY ==
--- NOTE | ~2023-09-16 | MR_ITS ---
EXAMINATION: MR BREAST WITHOUT AND WITH CONTRAST, BILATERAL CLINICAL INFORMATION: High-risk screening, family history of breast cancer. COMPARISON: Bilateral breast MRI 11/19/2020, bilateral mammogram 03/12/2022 TECHNIQUE: Imaging was performed with a dedicated breast coil. Prior to the administration of contrast, bilateral axial T1 and bilateral axial T2 weighted sequences were obtained. After the uneventful administration of? mL of Gadavist, dynamic contrast-enhanced VIBRANT series through the breasts in the axial plane were performed. Subtracted images were performed and reviewed. A delayed sagittal sequence through both breasts was acquired. Additionally, CAD post-processing, including maximum intensity projections, 3-D reconstructions and kinetic analysis, were performed an independent workstation and reviewed by the interpreting radiologist is a portion of this exam. FINDINGS: The patient's fibroglandular tissue demonstrates no significant diffuse background enhancement. LEFT BREAST: No suspicious masslike or non-masslike enhancement. No abnormal skin thickening or nipple retraction. No abnormal architectural distortion. Review of the T2 weighted images demonstrates no fibrocystic changes or dilated ducts. Review of kinetic images reveals no additional findings. RIGHT BREAST: No suspicious masslike or non-masslike enhancement. No abnormal skin thickening or nipple retraction. No abnormal architectural distortion. Review of the T2 weighted images demonstrates no fibrocystic changes or dilated ducts. Review of kinetic images reveals no additional findings. There is no suspicious internal mammary chain or axillary adenopathy. Limited views of the chest and abdomen are unremarkable. There has been no significant interval change. MR/MR breast BI wo/w con IMPRESSION: No MR specific evidence of malignancy. ASSESSMENT: LEFT BREAST: BI-RADS 1-Negative RIGHT BREAST: BI-RADS 1-Negative RECOMMENDATIONS: Recommend yearly screening mammogram, most recent prior mammogram is March 2022. Repeat MRI as clinically indicated.
[2023-09-16] MEDS: gadobutroL 10 ML VIAL IVPUSH (09:35)
== END 2023-09-16 08:07 | disposition home or self-care (01) ==
LOC: HO.MRI 08:06
PROVIDERS: PCP Nurse Practitioner Family; Visit Provider Surgery
DX: Z91.89 Other specified personal risk factors, not elsewhere classified (principal); Z80.3 Family history of malignant neoplasm of breast
CPT/HCPCS: 77049; A9585

== ENCOUNTER 2023-10-01 09:48 | Outpatient (AMB) | payer OTHER, SELFPAY ==
--- NOTE | 2023-10-01 09:53 | A.OFFVIS_ITS ---
Intake Vital Signs 10/01/23 09:57 Height 5 ft Weight 211 lb 10.3 oz BMI 41.3 BP 120/72 Blood Pressure Location Lt brachial Position Sitting Intake Visit Reasons: Genetic results *HERE* Intake Note: Patient is seen in office for genetic testing results. Pt c/o: here for results Family Assistant Required: No Accompanied by: Self / Same As Patient Allergies amoxicillin Allergy (Unknown, Verified 10/01/23 09:57) rash naproxen Allergy (Unknown, Verified 10/01/23 09:57) asthma exacerbation Latex Allergy (Unknown, Uncoded 10/01/23 09:57) Unknown HPI HPI Comments History of Present Illness Details 38-year-old female patient of Dr. Janki ramires and Dr. Cedeño presenting for a high risk breast screening examination.? Her lifetime risk based upon Betina Bolivar was determined to be at 28.3%, therefore she was placed on a high risk protocol.? Her paternal aunt was diagnosed with breast cancer at the age of 40, and a 2nd paternal aunt was diagnosed with malignant melanoma at the age of 17 and she was also diagnosed recently with cancer of the eye, and 2 maternal great aunts were diagnosed with breast cancer at the ages of 60 and 80 respectively.? Genetic testing on her paternal aunt with breast cancer revealed no deleterious? 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 The patient has never undergone genetic testing. Patient underwent routine mammography on 03/12/2022 which revealed no mammographic evidence of malignancy (BI-RADS 1).? Bilateral breast MRI performed on 01/07/2022 revealed no concerning MR findings (BiRADS 2). She delivered her baby 1 month early due to preeclampsia (5 lb) and is not undergone mammogram or MRI as she was nursing up until recently. She is scheduled for a mammogram 11/11/2023. She is due for a breast MRI as well. She feels well and denies any ongoing breast symptoms. Her baby is now 8-month-old and doing well. She returns today to review genetic testing performed on 08/20/2023. Genetic testing revealed no clinically significant mutations. 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 Her breast cancer risk score was calculated at 18.8 % and Tyrer-Cuzick remaining lifetime risk of breast cancer at 17.0 %. No new recommendations were provided in terms of screening or treatment based on the genetic testing. [facility] Medical History Asthma Preeclampsia At high risk for breast cancer Surgical History History of section History of ankle surgery (2006) Family History Father No problems noted. 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 Current occupational exposures/hazards: No Cognitive needs: No Hearing needs: No Vision needs: No Review of Systems Const Denies chills, Denies fever(s), Denies headache(s) and Denies poor appetite ENT Denies dizziness and Denies headache(s) Card Denies chest pain, Denies rapid heart rate, Denies palpitations and Denies slow heart rate Resp Denies chest congestion, Denies cough, Denies pain on inspiration and Denies wheezing GI Denies abdominal pain, Denies bloating, Denies change in stool character, Denies constipation, Denies diarrhea, Denies nausea, Denies vomiting and Denies hematemesis Denies nipple discharge Musc Denies back pain, Denies arthralgias, Denies joint swelling and Denies numbness Skin/Breast Denies breast swelling, Denies breast skin changes, Denies breast pain, Denies breast mass, Denies change in breast shape, Denies change in pigmentation, Denies nipple discharge, Denies erythema and Denies rash Neuro Denies dizziness, Denies headache(s) and Denies numbness Psych Denies anxiety and Denies depression Endo Denies palpitations Rashi/Lymph Denies easy bleeding, Denies easy bruising and Denies lymphadenopathy Aller/Immun Denies wheezing Physical Exam Vital Signs: Last Vital Signs BP 120/72 10/01/23 09:57 BMI result Body Mass Index 41.3 Const General: cooperative, healthy appearing, comfortable, no acute distress and well developed Orientation/consciousness: patient oriented x3 Eyes Sclerae: sclerae normal EOM: EOMs intact bilaterally Chest Other: Exam deferred Resp Effort & Inspection: normal respiratory effort, no stridor and not tachypneic Skin General skin exam: no rashes or lesions noted, dry skin and no erythema Neuro General: patient oriented x3 and gait normal Extrem General: Yes no clubbing, cyanosis or edema Assessment & Plan Assessment & Plan (1) At high risk for breast cancer: Code(s): Z91.89 - Other specified personal risk factors, not elsewhere classified Plan Patient returns today for review of the genetic testing results. Two variants of unknown significance were identified. A copy of the report was provided to the patient. She should continue with the high risk breast screening including twice yearly clinical breast examination, yearly mammogram alternating with yearly breast MRI. She will follow-up on 11/18/2023 for follow-up breast examination. Her next mammogram is scheduled for 11/11/2023. Coding Level of Care Code Est Pt Level 3 (88930) Diagnoses At high risk for breast cancer Z91.89
[2023-10-01 09:57] VITALS: BP 120/72; BMI 41.3
== END 2023-10-01 10:24 | disposition home or self-care (01) ==
PROVIDERS: PCP Hospitalist; Visit Provider Surgery
DX: Z80.3 Family history of malignant neoplasm of breast (principal); Z91.89 Other specified personal risk factors, not elsewhere classified
CPT/HCPCS: 99213

== ENCOUNTER → 2023-10-01 09:48 | Outpatient (BNVA) | payer OTHER, SELFPAY | PROVIDERS: PCP Hospitalist; Visit Provider Surgery ==

== ENCOUNTER 2023-11-11 09:10 | Outpatient (REF) | payer OTHER, SELFPAY | END 2023-11-11 09:11 | disposition home or self-care (01) | LOC: HO.MAMMO 09:10 | PROVIDERS: PCP Nurse Practitioner Family; Visit Provider Surgery | DX: Z12.31 Encounter for screening mammogram for malignant neoplasm of breast (principal) | CPT/HCPCS: 77063; 77067 ==

== ENCOUNTER → 2023-11-11 09:30 | Outpatient (BNV) | payer OTHER, SELFPAY | PROVIDERS: PCP Nurse Practitioner Family; Visit Provider Radiology Diagnostic Radiology | DX: Z12.31 Encounter for screening mammogram for malignant neoplasm of breast (principal) | CPT/HCPCS: 77063; 77067 ==

== ENCOUNTER 2023-11-18 11:32 | Outpatient (AMB) | payer OTHER, SELFPAY ==
--- NOTE | 2023-11-18 11:47 | MHC.OFFVIS ---
Intake Vital Signs 11/18/23 12:07 Height 5 ft Weight 225 lb BMI 43.9 BP 139/63 Blood Pressure Location Lt brachial Position Sitting Pulse 86 Intake Visit Reasons: 6 month breast exam Intake Note: Patient is seen in office for follow up visit, breast exam. 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 Coles and Dr. Cedeño presenting for a high risk breast screening examination.? Her lifetime risk based upon Betina Bolivar was determined to be at 28.3%, therefore she was placed on a high risk protocol.? Her paternal aunt was diagnosed with breast cancer at the age of 40, and a 2nd paternal aunt was diagnosed with malignant melanoma at the age of 17 and she was also diagnosed recently with cancer of the eye, and 2 maternal great aunts were diagnosed with breast cancer at the ages of 60 and 80 respectively.? Genetic testing on her paternal aunt with breast cancer revealed no deleterious? 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 The patient has never undergone genetic testing. Patient underwent routine mammography on 03/12/2022 which revealed no mammographic evidence of malignancy (BI-RADS 1).? Bilateral breast MRI performed on 09/16/2023 revealed no MR specific evidence of malignancy (BI-RADS 2 bilateral). Mammogram performed on 11/11/2023 as not been read at the time of this dictation. I will provide her with the results once they are available. She feels well and denies any ongoing breast symptoms. Genetic testing performed on 08/20/2023 revealed no clinically significant mutations. 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 Her breast cancer risk score was calculated at 18.8 % and Tyrer-Cuzick remaining lifetime risk of breast cancer at 17.0 %. No new recommendations were provided in terms of screening or treatment based on the genetic testing. [facility] Medical History Asthma Preeclampsia At high risk for breast cancer Surgical History History of section History of ankle surgery (2006) Family History Father No problems noted. 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 Current occupational exposures/hazards: No Cognitive needs: No Hearing needs: No Vision needs: No Review of Systems Const Denies chills, Denies fever(s), Denies headache(s) and Denies poor appetite ENT Denies dizziness and Denies headache(s) Card Denies chest pain, Denies rapid heart rate, Denies palpitations and Denies slow heart rate Resp Denies chest congestion, Denies cough, Denies pain on inspiration and Denies wheezing GI Denies abdominal pain, Denies bloating, Denies change in stool character, Denies constipation, Denies diarrhea, Denies nausea, Denies vomiting and Denies hematemesis Denies nipple discharge Musc Denies back pain, Denies arthralgias, Denies joint swelling and Denies numbness Skin/Breast Denies breast swelling, Denies breast skin changes, Denies breast pain, Denies breast mass, Denies change in breast shape, Denies change in pigmentation, Denies nipple discharge, Denies erythema and Denies rash Neuro Denies dizziness, Denies headache(s) and Denies numbness Psych Denies anxiety and Denies depression Endo Denies palpitations Rashi/Lymph Denies easy bleeding, Denies easy bruising and Denies lymphadenopathy Aller/Immun Denies wheezing Physical Exam Vital Signs: Last Vital Signs Pulse 86 11/18/23 12:07 BP 139/63 11/18/23 12:07 BMI result Body Mass Index 43.9 Const General: cooperative, healthy appearing, comfortable, no acute distress and well developed Orientation/consciousness: patient oriented x3 Eyes Sclerae: sclerae normal EOM: EOMs intact bilaterally Chest Other: Left breast: No skin change, no nipple retraction, no nipple discharge, no palpable mass, no enlarged lymph nodes. Breast tissue is dense. Right breast: No skin change, no nipple retraction, no nipple discharge, no palpable mass, no enlarged lymph nodes. Breast tissue is dense. Resp Effort & Inspection: normal respiratory effort, no stridor and not tachypneic Cardio Jugular venous distension: no JVD GI Inspection: Yes normal to inspection Skin General skin exam: no rashes or lesions noted, dry skin and no erythema Neuro General: patient oriented x3 and gait normal Extrem General: Yes no clubbing, cyanosis or edema Assessment & Plan Assessment & Plan (1) At high risk for breast cancer: Code(s): Z91.89 - Other specified personal risk factors, not elsewhere classified Plan Patient returns for follow-up breast examination due to her high risk status. Her most recent MRI of 09/16/2023 revealed no MR specific evidence of malignancy (BI-RADS 2). Her most recent mammogram of 11/11/2023 as not been officially read at the time of this dictation. I will provide her with the results once they are available. I recommended follow-up examination in 6 months, sooner p.r.n.. Coding Level of Care Code Est Pt Level 3 (37328) Diagnoses At high risk for breast cancer Z91.89
[2023-11-18 12:07] VITALS: BP 139/63; PULSE 86; BMI 43.9
== END 2023-11-18 12:07 | disposition home or self-care (01) ==
PROVIDERS: PCP Hospitalist; Visit Provider Surgery
DX: Z80.3 Family history of malignant neoplasm of breast (principal); Z91.89 Other specified personal risk factors, not elsewhere classified
CPT/HCPCS: 99213

== ENCOUNTER → 2023-11-18 11:32 | Outpatient (BNVA) | payer OTHER, SELFPAY | PROVIDERS: PCP Hospitalist; Visit Provider Surgery | DX: Z91.89 Other specified personal risk factors, not elsewhere classified (principal) ==

== ENCOUNTER 2024-05-16 10:48 | Outpatient (AMB) | payer OTHER, SELFPAY ==
[2024-05-16 10:48] VITALS: BP 141/66; PULSE 53; BMI 40.2
--- NOTE | 2024-05-16 10:48 | A.OFFVIS_ITS ---
Vital Signs 05/16/24 10:48 Height 5 ft Weight 206 lb BMI 40.2 BP 141/66 H Blood Pressure Location Lt brachial Position Sitting Pulse 53 Intake Visit Reasons: 6 month breast exam Intake Note: Patient is seen in office for follow up visit, breast exam. Patient c/o: no concerns regarding the breast mm: 11/11/23 Sales Professional Required: No Accompanied by: Self / Same As Patient Allergies amoxicillin Allergy (Unknown, Verified 05/16/24 10:49) rash naproxen Allergy (Unknown, Verified 05/16/24 10:49) asthma exacerbation Latex Allergy (Unknown, Uncoded 05/16/24 10:49) Unknown HPI Comments Details: 39-year-old female patient of Dr. Coles and Dr. Cedeño presenting for a high risk breast screening examination.? Her lifetime risk based upon Betina Bolivar was determined to be at 28.3%, therefore she was placed on a high risk protocol.? Her paternal aunt was diagnosed with breast cancer at the age of 40, and a 2nd paternal aunt was diagnosed with malignant melanoma at the age of 17 and she was also diagnosed recently with cancer of the eye, and 2 maternal great aunts were diagnosed with breast cancer at the ages of 60 and 80 respectively.? Genetic testing on her paternal aunt with breast cancer revealed no deleterious? mutations, however a variant of uncertain significance was noted at the TP 53 (c .847C>T) gene.? Bilateral breast MRI performed on 09/16/2023 revealed no MR specific evidence of malignancy (BI-RADS 2 bilateral). Mammogram performed on 11/11/2023 revealed no mammographic evidence of malignancy (BI-RADS 1). She feels well and denies any ongoing breast symptoms. Genetic testing performed on 08/20/2023 revealed no clinically significant mutations. 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 Her breast cancer risk score was calculated at 18.8 % and Romainer-Dorotheack remaining lifetime risk of breast cancer at 17.0 %. No new recommendations were provided in terms of screening or treatment based on the genetic testing. [facility] Medical History Asthma Preeclampsia At high risk for breast cancer Surgical History History of section History of ankle surgery (2006) Family History Father No problems noted. 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 Current occupational exposures/hazards: No Cognitive needs: No Hearing needs: No Vision needs: No Review of Systems Const Denies chills, Denies fever(s), Denies headache(s) and Denies poor appetite ENT Denies dizziness and Denies headache(s) Card Denies chest pain, Denies rapid heart rate, Denies palpitations and Denies slow heart rate Resp Denies chest congestion, Denies cough, Denies pain on inspiration and Denies wheezing GI Denies abdominal pain, Denies bloating, Denies change in stool character, Denies constipation, Denies diarrhea, Denies nausea, Denies vomiting and Denies hematemesis Denies nipple discharge Musc Denies back pain, Denies arthralgias, Denies joint swelling and Denies numbness Skin/Breast Denies breast swelling, Denies breast skin changes, Denies breast pain, Denies breast mass, Denies change in breast shape, Denies change in pigmentation, Denies nipple discharge, Denies erythema and Denies rash Neuro Denies dizziness, Denies headache(s) and Denies numbness Psych Denies anxiety and Denies depression Endo Denies palpitations Rashi/Lymph Denies easy bleeding, Denies easy bruising and Denies lymphadenopathy Aller/Immun Denies wheezing Physical Exam Vital Signs: Last Vital Signs Pulse 53 05/16/24 10:48 BP 141/66 H 05/16/24 10:48 BMI result Body Mass Index 40.2 Const General: cooperative, healthy appearing, comfortable, no acute distress and well developed Orientation/consciousness: patient oriented x3 Eyes Sclerae: sclerae normal EOM: EOMs intact bilaterally Chest Other: Left breast: No skin change, no nipple retraction, no nipple discharge, no palpable mass, no enlarged lymph nodes. Breast tissue is dense. Right breast: No skin change, no nipple retraction, no nipple discharge, no palpable mass, no enlarged lymph nodes. Breast tissue is dense. Resp Effort & Inspection: normal respiratory effort, no stridor and not tachypneic Cardio Jugular venous distension: no JVD GI Inspection: Yes normal to inspection Skin General skin exam: no rashes or lesions noted, dry skin and no erythema Neuro General: patient oriented x3 and gait normal Extrem General: Yes no clubbing, cyanosis or edema Assessment & Plan Assessment & Plan (1) At high risk for breast cancer: Code(s): Z91.89 - Other specified personal risk factors, not elsewhere classified Category: Medical (2) Family history of breast cancer: Code(s): Z80.3 - Family history of malignant neoplasm of breast Category: Medical Plan Patient returns for follow-up breast examination due to her high risk status. Her most recent MRI of 09/16/2023 revealed no MR specific evidence of malignancy (BI-RADS 1). Her most recent mammogram of 11/11/2023 revealed no mammographic evidence of malignancy (BI-RADS 1). Examination today revealed no suspicious findings in either breast other than bilateral dense breast tissue. I recommended continued annual mammogram and MRI screening with follow-up breast examination in 6 months. She is welcome to call sooner as needed. Orders: Orders MR breast BI wo/w con 09/11/24 Z80.3 - Family history of malignant neoplasm of breast, Z91.89 - Other specified personal risk factors, not elsewhere classified Coding Level of Care Code Est Pt Level 3 (75979) Diagnoses At high risk for breast cancer Z91.89 Family history of breast cancer Z80.3
== END 2024-05-16 11:03 | disposition home or self-care (01) ==
PROVIDERS: PCP Hospitalist; Visit Provider Surgery
DX: Z91.89 Other specified personal risk factors, not elsewhere classified (principal); Z80.3 Family history of malignant neoplasm of breast
CPT/HCPCS: 99213

== ENCOUNTER → 2024-05-16 10:48 | Outpatient (BNVA) | payer OTHER, SELFPAY | PROVIDERS: PCP Hospitalist; Visit Provider Surgery | DX: Z91.89 Other specified personal risk factors, not elsewhere classified (principal) ==

== ENCOUNTER → 2024-09-19 15:40 | Outpatient (BNV) | payer OTHER, SELFPAY | PROVIDERS: PCP Nurse Practitioner Family; Visit Provider Internal Medicine | DX: Z80.3 Family history of malignant neoplasm of breast (principal) | CPT/HCPCS: 77049 ==

== ENCOUNTER 2024-09-19 15:43 | Outpatient (REF) | payer OTHER, SELFPAY ==
--- NOTE | ~2024-09-19 | MR_ITS ---
EXAMINATION: MR BREAST WITHOUT AND WITH CONTRAST, BILATERAL CLINICAL INFORMATION: High risk screening, family history of breast cancer. COMPARISON: Mammogram November 11, 2023, breast MRI September 16, 2023 made 12/24/2021 November 19, 2020 November 22, 2019. TECHNIQUE: MR imaging of the breast was performed using T1, T2 and fat saturated techniques. Dynamic multiphase imaging was also performed after administration of intravenous gadolinium contrast agent. Computer generated 3-D reconstruction was generated. FINDINGS: There is scattered fibroglandular breast tissue with moderate background enhancement. LEFT BREAST: No suspicious enhancing masses or areas of nonmass enhancement. No architectural distortion. No internal mammary or axillary adenopathy. RIGHT BREAST: No suspicious enhancing masses or areas of nonmass enhancement. No architectural distortion. No internal mammary or axillary adenopathy. Limited views of the chest and abdomen are unremarkable. MR/MR breast BI wo/w con IMPRESSION: No MRI evidence of malignancy bilateral breasts. ASSESSMENT: LEFT BREAST: BI-RADS 1-Negative RIGHT BREAST: BI-RADS 1-Negative RECOMMENDATIONS: Recommend yearly mammogram screening. Recommend yearly MRI screening surveillance. Electronically signed by: Heather Hand DO 09/21/2024 09:48 AM [facility]
[2024-09-19] MEDS: gadobutroL 10 ML VIAL 9 ML IVPUSH (16:51)
== END 2024-09-19 15:44 | disposition home or self-care (01) ==
LOC: HO.MRI 15:43
PROVIDERS: PCP Nurse Practitioner Family; Visit Provider Surgery
DX: Z91.89 Other specified personal risk factors, not elsewhere classified (principal); Z80.3 Family history of malignant neoplasm of breast
CPT/HCPCS: 77049; A9585

== ENCOUNTER 2024-11-21 09:37 | Outpatient (AMB) | payer OTHER, SELFPAY ==
--- NOTE | 2024-11-21 09:45 | MHC.OFFVIS ---
Vital Signs 11/21/24 09:49 Height 5 ft Weight 205 lb 0.478 oz BMI 40.0 Pulse 60 Intake Visit Reasons: 6 month breast exam Intake Note: Patient is seen in office for follow up visit, breast exam. 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 Coles and Dr. Cedeño presenting for a high risk breast screening examination.? Her lifetime risk based upon Betina Bolivar was originally determined to be 28.3% placing her at high risk for breast cancer. She was placed on a high risk protocol which she continues. Family history includes a paternal aunt diagnosed with breast cancer at the age of 40, and a 2nd paternal aunt was diagnosed with malignant melanoma at the age of 17 and she was also diagnosed with cancer of the eye, and 2 maternal great aunts were diagnosed with breast cancer at the ages of 60 and 80 respectively.? Genetic testing on her paternal aunt with breast cancer revealed no deleterious? 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 Breast MRI performed on 09/19/2024 revealed no MR specific evidence of malignancy bilaterally (BI-RADS 1). Her most recent mammogram of 11/11/2023 revealed no mammographic evidence of malignancy (BI-RADS 1). She is now due for her annual mammogram. Genetic testing performed on 08/20/2023 revealed no clinically significant mutations. 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 Her breast cancer risk score was calculated at 18.8 % and Betina-Lisa remaining lifetime risk of breast cancer at 17.0 %. No new recommendations were provided in terms of screening or treatment based on the genetic testing. She denies any new breast symptoms in either breast. [facility] Medical History Asthma Preeclampsia At high risk for breast cancer Surgical History History of section History of ankle surgery (2006) Family History Father No problems noted. 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 Current occupational exposures/hazards: No Cognitive needs: No Hearing needs: No Vision needs: No Review of Systems Const All systems reviewed & are unremarkable except as noted in HPI and below Physical Exam Vital Signs: Last Vital Signs Pulse 60 11/21/24 09:49 BMI result Body Mass Index 40.0 Const General: cooperative, healthy appearing, comfortable, no acute distress and well developed Orientation/consciousness: patient oriented x3 Eyes Sclerae: sclerae normal EOM: EOMs intact bilaterally Chest Other: Left breast: No skin change, no nipple retraction, no nipple discharge, no palpable mass, no enlarged lymph nodes. Breast tissue is dense. Right breast: No skin change, no nipple retraction, no nipple discharge, no palpable mass, no enlarged lymph nodes. Breast tissue is dense. Resp Effort & Inspection: normal respiratory effort, no stridor and not tachypneic Cardio Jugular venous distension: no JVD GI Inspection: Yes normal to inspection Skin General skin exam: no rashes or lesions noted, dry skin and no erythema Neuro General: patient oriented x3 and gait normal Extrem General: Yes no clubbing, cyanosis or edema Assessment & Plan Assessment & Plan (1) At high risk for breast cancer: Code(s): Z91.89 - Other specified personal risk factors, not elsewhere classified Category: Medical (2) Family history of breast cancer: Code(s): Z80.3 - Family history of malignant neoplasm of breast Category: Medical Plan 39-year-old female patient determined to be at high risk for breast cancer due to family history returning for a routine by annual screening breast examination. Her most recent breast MRI performed on 09/19/2024 revealed no MR specific evidence of malignancy (BI-RADS 1 bilaterally). Mammogram of 11/11/2023 revealed no mammogram evidence of malignancy (BI-RADS 1). She is now due for her annual mammogram and an order has been sent. Examination today revealed bilateral dense breast tissue with fibrocystic change but no suspicious findings in either breast and no enlarged lymph nodes. I recommended six-month follow-up breast examination, sooner p.r.n.. Orders: Orders MM screening mammo BI Today Z91.89 - Other specified personal risk factors, not elsewhere classified Coding Level of Care Code Est Pt Level 3 (40966) Diagnoses At high risk for breast cancer Z91.89 Family history of breast cancer Z80.3
[2024-11-21 09:49] VITALS: PULSE 60; BMI 40.0
== END 2024-11-21 10:05 | disposition home or self-care (01) ==
LOC: HO.HGS 09:38
PROVIDERS: PCP Nurse Practitioner Family; Visit Provider Surgery
DX: Z91.89 Other specified personal risk factors, not elsewhere classified (principal); Z80.3 Family history of malignant neoplasm of breast
CPT/HCPCS: 99213

== ENCOUNTER → 2024-11-21 09:37 | Outpatient (BNVA) | payer OTHER, SELFPAY | PROVIDERS: PCP Nurse Practitioner Family; Visit Provider Surgery | DX: Z91.89 Other specified personal risk factors, not elsewhere classified (principal) ==

== ENCOUNTER 2025-01-10 15:40 | Outpatient (REF) | payer OTHER, SELFPAY | END 2025-01-10 15:41 | disposition home or self-care (01) | LOC: HO.MAMMO 15:40 | PROVIDERS: PCP Nurse Practitioner Family; Visit Provider Surgery | DX: Z12.31 Encounter for screening mammogram for malignant neoplasm of breast (principal) | CPT/HCPCS: 77063; 77067 ==

== ENCOUNTER → 2025-01-10 16:00 | Outpatient (BNV) | payer OTHER, SELFPAY | PROVIDERS: PCP Nurse Practitioner Family; Visit Provider Internal Medicine | DX: Z12.31 Encounter for screening mammogram for malignant neoplasm of breast (principal) | CPT/HCPCS: 77063; 77067 ==

== ENCOUNTER 2025-01-31 10:21 | Outpatient (REF) | payer OTHER, SELFPAY ==
[2025-01-31 14:20] LABS: Appearance Urine Cloudy; Color Urine Yellow; Glucose Urine UA Negative (Negative); Leukocyte Esterase Urine Moderate (2+) (Negative); Nitrite Urine Negative (Negative); UMIC TRIGGER UACC YES; Urine Blood Trace (Negative); Urine Ketones Negative (Negative); Urine Protein Negative (Neg-Trace)
[2025-01-31 14:23] LABS: MANUAL DIFF FLAG NO
[2025-01-31 14:37] LABS: Basophils Percent Auto 0.4 % (0-2); Eosinophils Absolute Auto 0.1 X10*3/uL (0.0-0.4); Eosinophils Percent Auto 1.3 % (0-4); Hematocrit 37.4 % (37.0-47.0); Hemoglobin 12.3 g/dl (12.0-16.0); Imm Gran Abs Auto 0.03 X10*3/uL (0.00-0.03); Imm Gran Pct Auto 0.4 % (0.0-0.4); Lymphocytes Absolute Auto 2.4 X10*3/uL (1.2-4.9); Lymphocytes Percent Auto 34.8 % (20-40); Mean Corpuscular HGB Conc 32.9 g/dl (31.0-35.0); Mean Corpuscular Hemoglobin 29.9 pg (27.0-33.0); Mean Corpuscular Volume 90.8 fL (80.0-98.0); Monocytes Absolute Auto 0.3 X10*3/uL (0.1-1.2); Monocytes Percent Auto 4.7 % (2-11); Neutrophils Percent Auto 58.4 % (45-73); Platelet Count 214 X10*3/uL (160-400); Red Blood Count 4.12 X10*6/uL (4.20-5.50); Red Cell Distribution Width 12.9 % (11.0-16.0); White Blood Count 6.8 X10*3/uL (4.8-10.8)
[2025-01-31 14:56] LABS: Creatinine Urine 48.76 mg/dL; Microalbum/Creatinine Ratio Ur 45.1 ug/mg cr (<30)
[2025-01-31 14:59] LABS: Bacteria Urine 3+ (None Seen)
[2025-01-31 15:00] LABS: Hyaline Casts Urine 0-2 /LPF (0-2); UACC Culture Trigger YES
[2025-01-31 15:16] LABS: Alanine Aminotransferase 17 U/L (0-31); Albumin Level 4.1 g/dL (3.5-5.0); Alkaline Phosphatase 62 U/L (39-117); Anion Gap 12 (12-20); Aspartate Amino Transferase 19 U/L (5-31); Bilirubin Total 0.4 mg/dL (0.0-1.0); Blood Urea Nitrogen 11 mg/dL (9-16); Calcium 9.2 mg/dL (8.4-10.2); Carbon Dioxide 29 mmol/L (22-29); Chloride 101 mmol/L (96-108); Cholesterol 230 mg/dL (<200); Estimated Glomerular Filt Rate > 60; Glucose Fasting 106 mg/dL (60-99); HDL Cholesterol 43 mg/dL (>40); LDL Cholesterol Calculated 143 mg/dL (<100); Potassium 4.1 mmol/L (3.3-5.1); Sodium 138 mmol/L (135-145); TSH reflex Free T4 1.39 uIU/mL (0.32-4.0); Total Protein 7.1 g/dL (6.5-8.0); Triglycerides 224 mg/dL (<150); Vitamin D 25-OH Total 40.8 ng/mL (>30)
== END 2025-01-31 10:22 | disposition home or self-care (01) ==
LOC: HO.WFDLDS 10:21
PROVIDERS: Visit Provider Nurse Practitioner Family
DX: Z00.00 Encounter for general adult medical examination without abnormal findings (principal); Z13.6 Encounter for screening for cardiovascular disorders
CPT/HCPCS: 36415; 80053; 80061; 81001; 82043; 82306; 82570; 84443; 85025; 87086

== ENCOUNTER 2025-02-16 09:52 | Outpatient (AMB) | payer OTHER, SELFPAY ==
--- NOTE | 2025-02-16 10:00 | MHC.PC.OV ---
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 Is last menstrual period known: Yes Last menstrual period: 02/06/25 Post menopausal: No Patient : No Allergies amoxicillin Allergy (Unknown, Verified 02/16/25 10:04) rash naproxen Allergy (Unknown, Verified 02/16/25 10:04) asthma exacerbation Latex Allergy (Unknown, Uncoded 11/21/24 09:45) Unknown Tobacco use date assessed: 02/16/25 Dental Screening Dental Screen Date: 02/16/25 Did you have a dental visit in the last 12 months?: Yes Did you have a dental problem in the last 6 months where you did not have access to dental care?: No Was dental information given to patient?: Patient has dentist [facility] Medical History Asthma Preeclampsia At high risk for breast cancer Surgical History History of section History of ankle surgery (2006) Family History Father No problems noted. 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 1. Little interest or pleasure in doing things: not at all 2. Feeling down, depressed, or hopeless: not at all 3. Trouble falling or staying asleep, or sleeping too much: more than half the days 4. Feeling tired or having little energy: several days 5. Poor appetite or overeating: not at all 6. Feeling bad about yourself - or that you are a failure or have let yourself or your family down: not at all 7. Trouble concentrating on things, such as reading the newspaper or watching television: not at all 8. Moving or speaking so slowly that other people could have noticed. Or the opposite - being so fidgety or restless that you have been moving around a lot more than usual: not at all 9. Thoughts that you would be better off or of hurting yourself in some way: not at all Total score: 3 Depression Screening Interpretation: Negative Depression Screening Done: Yes 77301 - PHQ-9 Billing: Yes Source: Developed by Drs. Silviano Queen, Jackie Mansfield, Moises Headley and colleagues, with an educational daxa from [employer]. Thrive Questionnaire Date Thrive assessed: 02/16/25 I am a: Patient What is your living situation today?: I have a steady place to live Within the past 12 months, did the food you bought not last and you didn't have the money to get more?: Never true Within the past 12 months, did you worry whether your food would run out before you got money to buy more?: Never true Do you have trouble paying for medicines?: No Do you have trouble getting transportation to medical appointments?: No Do you have trouble paying your heating and electricity bill?: No Do you have trouble taking care of your child, family member or friend?: No Do you have trouble with day-to-day activities such as bathing, preparing meals, shopping, managing finances, etc.?: No Are you currently unemployed and looking for a job?: No Are you interested in more education?: No Please select the resources that you would like help with: None Currently or been in a relationship where the following occur: No concerns reported THRIVE Score: 0 AUDIT C Alcohol Use Questionnaire (AUDIT-C) 1. How often do you have a drink containing alcohol?: Monthly or less 2. How many drinks containing alcohol do you have on a typical day when you are drinking?: 1 or 2 3. How often do you have six or more drinks on one occasion?: Never Total Score: 1 Score Reviewed/Action Taken: Yes CARL-7 AMB Questionnaire CARL-7 Date CARL - 7 assessed: 02/16/25 Feeling nervous, anxious, or on edge: 0 = Not at all Not being able to stop or control worryin = Not at all Worrying too much about different things: 1 = Several days Trouble relaxin = Not at all Being so restless that it is hard to sit still: 2 = More than half the days Becoming easily annoyed or irritable: 0 = Not at all Feeling afraid as if something awful might happen: 0 = Not at all Total CARL-7 score (0-4 normal; 5-9 mild; 10-14 moderate; 15-21 severe): 3 Source: Developed by Drs. Silviano Queen, Jackie Mansfield, Moises Headley and colleagues, with an educational daxa from [employer]. CARL-7 Assessment Billing CARL-7 Assessment Tool: CARL-7 Assessment 94626 Physical exam (Primary Care) Tobacco/Smoking Status: Tobacco use Status Tobacco use date assessed 07/22/23 08/16/23 16:09 Patient Tobacco Use Status Former Tobacco user 08/16/23 16:09 Tobacco use type Cigarette 08/16/23 16:09 e-Cigarette/Vaping Use Never Used 08/16/23 16:09 Depression Screening Interpretation: Negative Thrive Assessment: Date of Thrive Assessment Date Thrive assessed 02/09/25 02/09/25 12:33 Currently or been in a relationship where the following occur: No concerns reported Coding Additional Codes PHQ-9 - 36400 - PHQ-9 Billing: Yes ([id number]) CARL-7 Assessment Billing - CARL-7 Assessment Tool: CARL-7 Assessment 90422 ([id number])
--- NOTE | 2025-02-16 10:05 | A.OFFPC_ITS ---
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 Is last menstrual period known: Yes Last menstrual period: 02/06/25 Post menopausal: No Allergies amoxicillin Allergy (Unknown, Verified 02/16/25 10:23) rash naproxen Allergy (Unknown, Verified 02/16/25 10:23) asthma exacerbation Latex Allergy (Unknown, Uncoded 02/16/25 10:23) Unknown Medication List - Last Reconciled 02/16/25 by Bin Urbina CNP norelgestromin-ethin.estradiol 150-35 mcg/24 hr (Xulane) 1 patch transdermal QWEEK Tobacco use date assessed: 02/16/25 Dental Screening Dental Screen Date: 02/16/25 Did you have a dental visit in the last 12 months?: Yes Did you have a dental problem in the last 6 months where you did not have access to dental care?: No Was dental information given to patient?: Patient has dentist HPI HPI Comments History of Present Illness Details 39-year-old female presents for an exten ded physical exam. Acute issue(s) - None Past Medical History - Hypercholesterolemia, obesity, subclin ical hypothyroidism, elevated ALT, childhood asthma, preeclampsia, myopia (wears glasses) Social History - Nonsmoker. Does not vape. Drinks alcoh ol occasionally. Denies recreational drug use - Generally makes healthy dietary choice s, however, she consumes red meat and cheese. She is in a weight loss program and has lost 30 lb in the past 8 months. Walks regularly. She has difficulty falling or staying asleep, unsure if she snores Health maintenance - Last eye exam was 3 years ago. Referre d to Ophthalmology for routine eye exam - Last dental visit was couple months ag o - Last Tdap was in 10/12/2022 - Has not been vaccinated for the flu ; declines vaccination - Last pap smear test was 5 years ago: n ormal. Referred to [facility] sales [facility] for a Pap smear test - Last mammogram was in 01/10/2025: Danette piedra [facility] Medical History Asthma Preeclampsia At high risk for breast cancer Surgical History History of section History of ankle surgery (2006) Family History Father No problems noted. 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 1. Little interest or pleasure in doing things: not at all 2. Feeling down, depressed, or hopeless: not at all 3. Trouble falling or staying asleep, or sleeping too much: more than half the days 4. Feeling tired or having little energy: several days 5. Poor appetite or overeating: not at all 6. Feeling bad about yourself - or that you are a failure or have let yourself or your family down: not at all 7. Trouble concentrating on things, such as reading the newspaper or watching television: not at all 8. Moving or speaking so slowly that other people could have noticed. Or the opposite - being so fidgety or restless that you have been moving around a lot more than usual: not at all 9. Thoughts that you would be better off or of hurting yourself in some way: not at all Total score: 3 Depression Screening Interpretation: Negative Depression Screening Done: Yes [id number] - PHQ-9 Billing: Yes Source: Developed by Drs. Silviano Queen, Jackie Mansfield, Moises Headley and colleagues, with an educational daxa from [employer]. Thrive Questionnaire Date Thrive assessed: 02/16/25 I am a: Patient What is your living situation today?: I have a steady place to live Within the past 12 months, did the food you bought not last and you didn't have the money to get more?: Never true Within the past 12 months, did you worry whether your food would run out before you got money to buy more?: Never true Do you have trouble paying for medicines?: No Do you have trouble getting transportation to medical appointments?: No Do you have trouble paying your heating and electricity bill?: No Do you have trouble taking care of your child, family member or friend?: No Do you have trouble with day-to-day activities such as bathing, preparing meals, shopping, managing finances, etc.?: No Are you currently unemployed and looking for a job?: No Are you interested in more education?: No Please select the resources that you would like help with: None Currently or been in a relationship where the following occur: No concerns reported THRIVE Score: 0 AUDIT C Alcohol Use Questionnaire (AUDIT-C) 1. How often do you have a drink containing alcohol?: Monthly or less 2. How many drinks containing alcohol do you have on a typical day when you are drinking?: 1 or 2 3. How often do you have six or more drinks on one occasion?: Never Total Score: 1 Score Reviewed/Action Taken: Yes CARL-7 AMB Questionnaire CARL-7 Date CARL - 7 assessed: 02/16/25 Feeling nervous, anxious, or on edge: 0 = Not at all Not being able to stop or control worryin = Not at all Worrying too much about different things: 1 = Several days Trouble relaxin = Not at all Being so restless that it is hard to sit still: 2 = More than half the days Becoming easily annoyed or irritable: 0 = Not at all Feeling afraid as if something awful might happen: 0 = Not at all Total CARL-7 score (0-4 normal; 5-9 mild; 10-14 moderate; 15-21 severe): 3 Source: Developed by Drs. Silviano Queen, Jackie Mansfield, Moises Headley and colleagues, with an educational daxa from [employer]. ACT Questionnaire In the past 4 weeks, how much of the time did your asthma keep you from getting as much done at work, school or at home?: None of the time During the past 4 weeks, how often have you had shortness of breath?: 1-2 times a week During the past 4 weeks, how often did your asthma symptoms wake you up at night or earlier than usual in the morning?: Not at all During the past 4 weeks, how often have you had to use your rescue inhaler or nebulizer medication?: Not at all How would you rate your asthma control during the past 4 weeks?: Well controlled ACT Interpretation: Negative Score: 23 Review of Systems Const Details: Denies chills, Denies fatigue, Denies fever(s), Denies headache(s) and Denies weakness HEENT Denies change in vision, Denies dizziness, Denies headache(s), Denies hearing loss, Denies nasal congestion, Denies sinus pain, Denies sinus pressure and Denies sore throat Card Denies chest pain, Denies lightheadedness, Denies dyspnea and Denies other (palpitations) Resp Denies cough, Denies dyspnea and Denies wheezing GI Denies abdominal pain, Denies melena, Denies hematochezia, Denies change in bowel habits, Denies dyspepsia and Denies nausea Denies hematuria and Denies dysuria Musc Denies abnormal gait, Denies myalgias, Denies arthralgias, Denies numbness and Denies tingling Skin/Breast Denies rash, Denies unusual bruising and Denies wounds Neuro Denies abnormal gait, Denies dizziness, Denies headache(s), Denies memory loss, Denies numbness, Denies Sensory deficit (Neuro), Denies tingling and Denies weakness Psych Denies anxiety, Denies depression and Denies memory loss Endo Denies cold intolerance, Denies fatigue, Denies heat intolerance, Denies polydipsia and Denies polyuria Rashi/Lymph Denies easy bleeding and Denies easy bruising Aller/Immun Denies wheezing Physical exam (Primary Care) Vital Signs: Last Vital Signs Temp 97.7 F 02/16/25 10:09 Pulse 71 02/16/25 10:09 Resp 16 02/16/25 10:09 BP 106/53 L 02/16/25 10:09 Pulse Ox 98 02/16/25 10:09 Oxygen Delivery Method Room Air 02/16/25 10:09 BMI result Body Mass Index 37.1 Tobacco/Smoking Status: Tobacco use Status Tobacco use date assessed 02/16/25 02/16/25 10:13 Patient Tobacco Use Status Former Tobacco user 02/16/25 10:13 Tobacco use type Cigarette 02/16/25 10:13 e-Cigarette/Vaping Use Never Used 02/16/25 10:13 PHQ-9: PHQ-9 Score PHQ-9: Total score 3 02/16/25 10:32 Depression Screening Interpretation: Negative Thrive Assessment: Date of Thrive Assessment Date Thrive assessed 02/16/25 02/16/25 10:13 Currently or been in a relationship where the following occur: No concerns reported Const Other: General: no acute distress, well developed, alert and awake Nutritional Appearance: well nourished Orientation/consciousness: patient oriented x3 HENMT Head: Yes normocephalic and Yes atraumatic Ears: hearing grossly normal bilaterally and TM's normal bilaterally General nose exam: Normal external nose present and Normal nares present Mouth: Normal oral and palatal mucosa present and moist mucous membranes Teeth and gingiva: dentition normal Throat: Yes oropharynx normal Eyes Pupils: Equal, round and reactive pupils present and Pupil accommodation reflex normal EOM: EOMs intact bilaterally Neck Neck: Yes normal visual inspection, Yes no lymphadenopathy and Yes trachea midline Thyroid: Thyroid normal Carotids: no bruits Lymphatic: no lymphadenopathy noted Chest Chest palpation & inspection: normal inspection of the chest Resp Effort & Inspection: normal respiratory effort Auscultation: clear to auscultation bilaterally Cardio Rate: regular rate Rhythm: regular rhythm Heart sounds: S1 normal heart sound present, S2 normal heart sound present, no gallops, no murmurs and no rubs Bruits: no abdominal aortic bruits and no carotid bruits GI Palpation (GI): No Abdominal aortic bruit present, Soft to palpation, nontender, No hepatosplenomegaly present and No Rebound tenderness present Auscultation: normal bowel sounds General: Yes no CVA tenderness Back/Spine/Pelvis Back: no CVA tenderness Cervical Spine: cervical ROM normal and No Cervical spine tenderness Thoracic/Lumbar Spine: thoraco-lumbar ROM normal, No pain with thoraco-lumbar ROM, No thoracic spinal tenderness and No lumbar spinal tenderness Skin General: warm and dry. Normal skin color. Normal skin turgor Lesions: no lesions Rashes: no rashes Trauma: no lacerations or abrasions Wounds: no wounds Nails: normal Neuro General: patient oriented x3, gait normal and CN's II-XI intact bilaterally Cranial nerves: Yes Equal, round and reactive pupils present Cognition (Neuro): normal cognition Gait exam (Neuro): Normal gait present Motor exam (neuro): 5/5 motor strength present throughout Sensory Exam: No Sensory deficit (Neuro) Deep tendon reflexes (DTR's): Right patellar reflex intensity grade: 2+ and Left patellar reflex intensity grade: 2+ Extrem General: Yes normal to inspection, No edema and No calf tenderness Psych Appearance: grossly normal Affect: normal affect Attitude: cooperative Thought process: Normal thought process present Coding Level of Care Code Est Pt Level 4 (66598) Est Pt Prev Care 18-39y(44680) Diagnoses Normal physical exam Z00.00 Prediabetes R73.03 Hyperlipidemia E78.5 Microalbuminuria R80.9 Sleep disturbance G47.9 Myopia H52.10 Obesity (BMI 30-39.9) E66.9 Pap smear for cervical cancer screening Z12.4 Additional Codes Asthma Control Questionnaire - ACT Interpretation: Negative ([id number]) PHQ-9 - 65889 - PHQ-9 Billing: Yes ([id number]) Assessment & Plan Assessment & Plan (1) Normal physical exam: Code(s): Z00.00 - Encounter for general adult medical examination without abnormal findings Category: Medical Plan: No significant functional limitation noted. Healthy diet and routine exercise encouraged. Perform lab work and follow-up as planned. Return sooner with symptoms or concerns. Verbalized understanding and agreed with the treatment plan. (2) Prediabetes: Code(s): R73.03 - Prediabetes Category: Medical Plan: Recent fasting glucose is slightly elevated, 106. A1c today is 6.1%. Routine exercise and healthy diet, including low carbs encouraged. Will recheck A1c in 3 months. Verbalized understanding and agreed with the plan. (3) Hyperlipidemia: Code(s): E78.5 - Hyperlipidemia, unspecified Category: Medical Plan: Recent triglycerides, total cholesterol, and LDL levels are elevated, 224, 230, and 143 respectively. She consumes red meat and cheese. Advised to limit foods high in saturated fat and avoid foods high in trans fat. Routine exercise encouraged. Fast for 10-12 hours, may drink water, and perform lipid panel blood work a few days before next visit. Follow-up for telehealth visit in 3 months. Verbalized understanding and agreed with the plan. (4) Microalbuminuria: Code(s): R80.9 - Proteinuria, unspecified Category: Medical Plan: Recent urine microalbumin/creatinine ratio is elevated, 45.1. BUN/creatinine normal. Likely dehydration. Adequate hydration encouraged. Will recheck urine microalbumin in 3 months. Verbalized understanding and agreed with the plan. (5) Sleep disturbance: Code(s): G47.9 - Sleep disorder, unspecified Category: Medical Plan: She has difficulty falling or staying asleep, unsure if she snores. Instructed on sleep hygiene. May take melatonin as needed. Referred to [facility] [place] [facility] for sleep study. Follow-up with worsening or new symptoms. Verbalized understanding and agreed with the treatment plan. (6) Myopia: Code(s): H52.10 - Myopia, unspecified eye Category: Medical Plan: She wears prescription glasses. Last eye exam was 3 years ago. Referred to Ophthalmology for routine eye exam. (7) Obesity (BMI 30-39.9): Code(s): E66.9 - Obesity, unspecified Category: Medical Plan: She generally makes healthy dietary choices, however, she consumes red meat and cheese. She is in a weight loss program and has lost 30 lb in the past 8 months. Walks regularly. She currently weighs 190 lb, BMI is 37.1. Healthy diet and routine exercise encouraged. Continue with weight loss program. Verbalized understanding and agreed with the plan. (8) Pap smear for cervical cancer screening: Code(s): Z12.4 - Encounter for screening for malignant neoplasm of cervix Category: Medical Plan: Last pap smear test was 5 years ago: normal. Referred to [facility] corporate sales representative for a Pap smear test. Orders: Orders Lipid Panel 3 Months E78.5 - Hyperlipidemia, unspecified Microalbumin, Random (w Creat) 3 Months R80.9 - Proteinuria, unspecified Hemoglobin A1c 3 Months R73.03 - Prediabetes Referrals SEE WHEELER Referral Z12.4 - Encounter for screening for malignant neoplasm of cervix Ophthalmology Referral H52.10 - Myopia, unspecified eye Sleep Medicine Referral G47.9 - Sleep disorder, unspecified
[2025-02-16 10:09] VITALS: BP 106/53; PULSE 71; RESP 16; TEMP 36.5; O2SAT 98; BMI 37.1
== END 2025-02-16 10:43 | disposition home or self-care (01) ==
LOC: HO.HMCFM 09:54
PROVIDERS: PCP Nurse Practitioner Family; Visit Provider Nurse Practitioner Family
DX: Z00.00 Encounter for general adult medical examination without abnormal findings (principal); R73.03 Prediabetes; E66.9 Obesity, unspecified; Z68.37 Body mass index [BMI] 37.0-37.9, adult; E78.5 Hyperlipidemia, unspecified; R80.9 Proteinuria, unspecified; G47.9 Sleep disorder, unspecified; H52.10 Myopia, unspecified eye

== ENCOUNTER → 2025-02-16 09:52 | Outpatient (BNVA) | payer OTHER, SELFPAY | PROVIDERS: PCP Nurse Practitioner Family; Visit Provider Nurse Practitioner Family | DX: Z00.00 Encounter for general adult medical examination without abnormal findings (principal); E78.00 Pure hypercholesterolemia, unspecified; E66.9 Obesity, unspecified; E03.8 Other specified hypothyroidism; R73.03 Prediabetes; R80.9 Proteinuria, unspecified; G47.9 Sleep disorder, unspecified; H52.10 Myopia, unspecified eye; Z68.37 Body mass index [BMI] 37.0-37.9, adult | CPT/HCPCS: 96127; 96160 ==

== ENCOUNTER 2025-05-15 10:12 | Outpatient (AMB) | payer OTHER, SELFPAY ==
--- NOTE | 2025-05-15 10:29 | MHC.OFFVIS ---
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 Has difficulty falling or staying asleep, Sometimes snores. not sure witnessed apneas. Goes to bed around 10-11pm wakes up around 5-6am. No set schedule due to work schedule. Light sleeper No history of sleep studies. Allergies amoxicillin Allergy (Unknown, Verified 05/15/25 10:33) rash naproxen Allergy (Unknown, Verified 05/15/25 10:33) asthma exacerbation Latex Allergy (Unknown, Uncoded 02/16/25 10:23) Unknown HPI Comments Details: 40 year old female is a new pt. referral for sleep apnea evaluation by her pcp. She is a very light sleeper and has multiple arousals through the night. She snores loudly, gasps for air with episodes of choking and coughing. She goes to bed at 10pm and wakes up at 5am, usually has one bathroom break. She wakes herself up due to rolling over from side to side, has carpal tunnels syndrome and trigger finger bilaterally which also causes arousals from sleep. She has morning headaches, she clenches her jaws and grinds her teeth at night. She is a nose breather and tried a mouth guard which caused her to keep her mouth open and she did not tolerate it. She has a normal amount of anxiety and stress with recent over-thinking and over analyzing life, as she is a thinker. Her sleep patterns are worse the week before her menses and can not sleep through the night during that week. RLS symptoms, of paresthesias, tingling, pins and needles with jerking of the legs at night also cause fatigue and fragmented sleep. [facility] Medical History Asthma Preeclampsia At high risk for breast cancer Surgical History History of section History of ankle surgery (2006) Family History Father No problems noted. 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 Current occupational exposures/hazards: No Cognitive needs: No Hearing needs: No Vision needs: No Physical Exam Vital Signs: Last Vital Signs Pulse 82 05/15/25 10:30 BP 108/60 05/15/25 10:30 Pulse Ox 97 05/15/25 10:30 Oxygen Delivery Method Room Air 05/15/25 10:30 BMI result Body Mass Index 38.5 Const General: cooperative, comfortable and no acute distress Nutritional Appearance: obese Orientation/consciousness: patient oriented x3 HEENT Face and sinus: Yes other (crooked bottom jaw - misaligned smile) Teeth and gingiva: other (mallampti score is 4) Eyes Pupils: Equal, round and reactive pupils present Neck Neck: Yes full ROM Resp Effort & Inspection: normal respiratory effort and able to speak in complete sentences Neuro General: patient oriented x3 and moves all extremities Cranial nerves: Yes Equal, round and reactive pupils present, Yes Normal accommodation reflex present, Yes Normal facial strength present, Yes Midline tongue present, Yes Ability to bilaterally rotate head present and Yes Ability to bilaterally elevate shoulders present Cognition (Neuro): normal cognition Gait exam (Neuro): Normal gait present Motor exam (neuro): 5/5 motor strength present throughout and Normal motor muscle tone present throughout Psych Appearance: grossly normal Thought process: Normal thought process present Thought content: Normal thought content present Assessment & Plan Assessment & Plan (1) Excessive daytime sleepiness: Code(s): G47.19 - Other hypersomnia Category: Medical Plan HST to r/o reno Labs to r/o fatigue RLS monitor symptoms Orders: Orders Vitamin B6 Today G47.19 - Other hypersomnia Vitamin B1 Today G47.19 - Other hypersomnia Hemoglobin A1c Today G47.19 - Other hypersomnia Ferritin Today G47.19 - Other hypersomnia RT home sleep study Today G47.19 - Other hypersomnia Vitamin B12 and Folate Today G47.19 - Other hypersomnia Methylmalonic Acid Today G47.19 - Other hypersomnia, G47.9 - Sleep disorder, unspecified, R53.83 - Other fatigue Homocysteine Today G47.19 - Other hypersomnia, G47.9 - Sleep disorder, unspecified, R53.83 - Other fatigue Coding Level of Care Code New Pt Level 4 (66602) Diagnoses Excessive daytime sleepiness G47.19 Sleep Questionnaire Difficulty falling asleep: Yes Difficulty staying asleep?: Yes Number of arousals: 5-7 Snoring: No (only when congested) Witnessed apneas: No Gasping arousals: No Nocturia: No GERD: Yes Vivid dreams: No Acting out dreams: No Abnormal behavior in sleep: No Abnormal movements in sleep: No Morning headaches: Yes Excessive daytime sleepiness: Yes Daytime naps: No Restless legs: Yes (kicking / twitching) Hallucinations: No Sleep paralysis: No Drop attacks: No Sleep Study: No CPAP: No
[2025-05-15 10:30] VITALS: BP 108/60; PULSE 82; O2SAT 97; BMI 38.5
== END 2025-05-15 11:32 | disposition home or self-care (01) ==
LOC: HO.HSMS 10:13
PROVIDERS: PCP Nurse Practitioner Family; Visit Provider Physician Assistant Medical
DX: G47.19 Other hypersomnia (principal)
CPT/HCPCS: 99204

== ENCOUNTER 2025-05-19 09:56 | Outpatient (REF) | payer OTHER, SELFPAY ==
[2025-05-19 10:38] LABS: Hemoglobin A1C 221.9062 umol/L; Hemoglobin A1C 224.7737 umol/L; Total Hemoglobin (HGBA1C) 3381.8846 umol/L; Total Hemoglobin (HGBA1C) 3413.1756 umol/L
[2025-05-19 10:48] LABS: Cholesterol 251 mg/dL (<200); HDL Cholesterol 52 mg/dL (>40); Triglycerides 135 mg/dL (<150)
[2025-05-19 11:02] LABS: Ferritin 70 ng/mL (10-250)
[2025-05-19 11:16] LABS: Folate 12.6 ng/mL (> or = 4.0); Vitamin B12 355 pg/mL (200-900)
[2025-05-19 12:04] LABS: Appearance Urine Clear; Glucose Urine UA Negative (Negative); PH 7.5 (5.0-9.0); Specific Gravity - Urine 1.010 (1.005-1.025)
[2025-05-19 13:55] LABS: Microalbum/Creatinine Ratio Ur 42.5 ug/mg cr (<30)
== END 2025-05-19 09:57 | disposition home or self-care (01) ==
LOC: HO.LAB 09:56
PROVIDERS: Absent Provider Physician Assistant Medical; PCP Nurse Practitioner Family; Visit Provider Nurse Practitioner Family
DX: Z00.00 Encounter for general adult medical examination without abnormal findings (principal); G47.19 Other hypersomnia; R53.83 Other fatigue; G47.9 Sleep disorder, unspecified; R80.9 Proteinuria, unspecified; E78.5 Hyperlipidemia, unspecified; R73.03 Prediabetes
CPT/HCPCS: 36415; 80061; 81003; 82043; 82570; 82607; 82728; 82746; 83036; 83090; 83921; 84207; 84425

== ENCOUNTER 2025-05-22 11:45 | Outpatient (AMB) | payer OTHER, SELFPAY ==
--- NOTE | 2025-05-22 11:42 | A.OFFPC_ITS ---
Intake Visit Reasons: Tele 3 months prediabes, HLD, microalbuminuria Intake Note: patient here for 3 month Telehealth follow up on prediabetes, HLD, and microalbuminuria Out And Out Cigar Maker Hand Required: No Is last menstrual period known: Yes Last menstrual period: 04/24/25 Post menopausal: No Patient : No Allergies amoxicillin Allergy (Unknown, Verified 05/22/25 11:43) rash naproxen Allergy (Unknown, Verified 05/22/25 11:43) asthma exacerbation Latex Allergy (Unknown, Uncoded 02/16/25 10:23) Unknown Tobacco use date assessed: 05/22/25 Dental Screening Dental Screen Date: 05/22/25 Did you have a dental visit in the last 12 months?: Yes Did you have a dental problem in the last 6 months where you did not have access to dental care?: No Was dental information given to patient?: Patient has dentist HPI HPI Comments History of Present Illness Details 40-year-old female presents for prediabe nichol, hyperlipidemia, and microalbuminuria follow-up. She was on GLP-1 for weight management for about 4 months. She stopped taking the medication in February 2025 becasue she could not afford to continue paying $500 [id number] monthly. She has been making unhealthy dietary choice since coming off the medication. She has been exercising by lifting light weights and cardio exercise at home. She has struggle to lose weight most of her life. She [place] [facility] [place] She admits to making healthy lifestyle changes. She offers no complaints and denies acute symptoms at this time. [facility] Medical History Asthma Preeclampsia At high risk for breast cancer Surgical History History of section History of ankle surgery (2006) Family History Father No problems noted. 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 Silviano Queen, Jackie Mansfield, Moises Headley and colleagues, with an educational daxa from [employer]. Review of Systems Const Details: Denies chills, Denies fatigue, Denies fever(s), Denies headache(s) and Denies weakness Cardiac Denies chest pain, Denies claudication, Denies leg edema, Denies lightheadedness, Denies palpitations, Denies dyspnea, Denies dyspnea on exertion, Denies orthopnea and Denies other (Loss of consciousness) Resp Denies cough, Denies excessive phlegm production, Denies dyspnea, Denies dyspnea on exertion, Denies snoring and Denies wheezing Physical exam (Primary Care) Tobacco/Smoking Status: Tobacco use Status Tobacco use date assessed 05/22/25 05/22/25 11:45 Patient Tobacco Use Status Former Tobacco user 05/22/25 11:45 Tobacco use type Cigarette 05/22/25 11:45 e-Cigarette/Vaping Use Never Used 05/22/25 11:45 Thrive Assessment: Date of Thrive Assessment Date Thrive assessed 02/09/25 05/22/25 11:45 Const Other: Patient is alert and oriented x3 Telehealth Telehealth Telehealth Platform: Telephone Location of provider rendering services: practice address Location of patient: address on file Patient Identification confirmed using: Name, : Yes Telehealth method: voice only Patient verbally consented to treatment: Yes Patient verbally consented to billing insurance company: Yes Patient informed of any privacy concerns related to visit: Yes Coding Level of Care Code Tele Est Pt Level 3 (71652) Diagnoses Diabetes E11.9 Hyperlipidemia E78.5 Microalbuminuria R80.9 Obesity (BMI 30-39.9) E66.9 Time Spent (min) 20 Assessment & Plan Assessment & Plan (1) Diabetes: Code(s): E11.9 - Type 2 diabetes mellitus without complications Category: Medical Plan: Recent A1c is 8.2%, above goal of less than 7.0%. Metformin 500 mg twice daily ordered; advised to take as prescribed. Instructed on the risks, benefits, and potential adverse reactions of the medication. ADA diet and routine exercise encouraged. Diabetic supplies ordered for blood glucose monitoring. Advised to check blood sugar before meal, and afternoon and evening, record readings, and bring to next appointment. Follow-up in 6 weeks or sooner with symptoms or concerns. Verbalized understanding and agreed with the plan. (2) Hyperlipidemia: Code(s): E78.5 - Hyperlipidemia, unspecified Category: Medical Plan: Recent total cholesterol and LDL levels are elevated, 251 and 172 respectively. Triglycerides and HDL levels are normal. Atorvastatin 20 mg daily at bedtime ordered; advised to take as prescribed. Instructed on the risks, benefits, and potential adverse reactions of the medication. Advised to limit foods high in saturated fat and avoid foods high in trans fat. Routine exercise encouraged. Fast for 10-12 hours, may drink water, and perform lipid panel blood work a few days before next visit. Follow-up in 6 weeks. Verbalized understanding and agreed with the plan. (3) Microalbuminuria: Code(s): R80.9 - Proteinuria, unspecified Category: Medical Plan: Recent microalbumin level is elevated, 42.5, previous level was 45.1. Likely due to uncontrolled diabetes, dehydration, or both. Encouraged to continue current treatment regimen for optimal diabetes control. Adequate hydration encouraged. Will recheck urine microalbumin/creatinine ratio in 6 weeks. Verbalized understanding and agreed with the plan. (4) Obesity (BMI 30-39.9): Code(s): E66.9 - Obesity, unspecified Category: Medical Plan: Healthy diet and routine exercise encouraged. [place] [facility] [place] Follow-up as needed. Verbalized understanding and agreed with the plan. Orders: Orders Lipid Panel 6 Weeks E78.5 - Hyperlipidemia, unspecified Microalbumin, Random (w Creat) 6 Months R80.9 - Proteinuria, unspecified Referrals Medical Weight Management Referral E66.9 - Obesity, unspecified Medications: New atorvastatin (Lipitor) 20 mg PO BEDTIME 30 tabs 3RF 30 days blood-glucose meter (FreeStyle Lite Meter kit) POC testing TID 1 ea 0RF E11.9 - Type 2 diabetes mellitus without complications blood sugar diagnostic (FreeStyle Lite Strips) POC testing TID 100 ea 0RF E11.9 - Type 2 diabetes mellitus without complications metformin 500 mg PO BIDWMEAL 60 tabs 3RF 30 days lancets (FreeStyle Lancets) POC testing TID 100 ea 3RF E11.9 - Type 2 diabetes mellitus without complications
== END 2025-05-22 12:45 | disposition home or self-care (01) ==
LOC: HO.HMCFM 11:45
PROVIDERS: PCP Nurse Practitioner Family; Visit Provider Nurse Practitioner Family
DX: E11.9 Type 2 diabetes mellitus without complications (principal); E78.5 Hyperlipidemia, unspecified; R80.9 Proteinuria, unspecified; E66.9 Obesity, unspecified

== ENCOUNTER 2025-05-25 09:37 | Outpatient (AMB) | payer OTHER, SELFPAY ==
--- NOTE | 2025-05-25 09:43 | A.OFFVIS_ITS ---
Vital Signs 05/25/25 09:49 Height 5 ft Weight 195 lb BMI 38.1 BP 116/61 Blood Pressure Location Lt brachial Position Sitting Pulse 63 Intake Visit Reasons: 6 month breast exam Intake Note: Patient is seen in office for 6 month follow up visit, breast exam. Pt c/o: denies any concerns regarding the breast mm:01/10/25 MRI:09/19/24 Computer Processing Scheduler Required: No Peripheral Vascular Tech: Peripheral Vascular Tech Present Accompanied by: Self / Same As Patient Allergies amoxicillin Allergy (Unknown, Verified 05/25/25 09:49) rash naproxen Allergy (Unknown, Verified 05/25/25 09:49) asthma exacerbation Latex Allergy (Unknown, Uncoded 05/25/25 09:49) Unknown Medication List - Last Reconciled 05/25/25 by Myron Arredondo MD atorvastatin (Lipitor) 20 mg PO BEDTIME 30 days blood sugar diagnostic (FreeStyle Lite Strips) POC testing TID blood-glucose meter (FreeStyle Lite Meter kit) POC testing TID lancets (FreeStyle Lancets) POC testing TID metformin 500 mg PO BIDWMEAL 30 days norelgestromin-ethin.estradiol 150-35 mcg/24 hr (Xulane) 1 patch transdermal QWEEK HPI Comments Details: 40-year-old female patient, former patient of Dr. Coles and Dr. Cedeño, returning for high risk breast examination. Her family history includes a paternal aunt with diagnosed with breast cancer at the age of 40 in his 2nd paternal aunt diagnosed with malignant melanoma of the age of 17. She has 2 maternal great aunts diagnosed with breast cancer at the age of 60 and 80 respectively. Her lifetime risk of breast cancer (Tyrer-Cuzick) score was determined to be 28.3% and she was subsequently placed on a high risk protocol including twice yearly clinical breast examination, yearly breast MRI and mammograms alternating every 6 months. Genetic testing performed on 08/20/2023 revealed no clinically significant mutations. 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 She denies any new breast symptoms, palpable mass or nipple discharge. Her most recent mammogram dated 01/10/2025 revealed no mammographic evidence of malignancy (BI-RADS 1). Breast MRI performed on 09/19/2024 revealed no MR specific evidence of malignancy (BI- RADS 1 bilateral). [facility] Medical History Asthma Preeclampsia At high risk for breast cancer Surgical History History of section History of ankle surgery (2006) Family History Father No problems noted. 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 Breast tissue is dense. Right breast: No skin change, no nipple retraction, no nipple discharge, no palpable mass, no enlarged lymph nodes. Breast tissue is dense. Resp Effort & Inspection: normal respiratory effort, no stridor and not tachypneic Cardio Jugular venous distension: no JVD GI Inspection: Yes normal to inspection Skin General skin exam: no rashes or lesions noted, dry skin and no erythema Neuro General: patient oriented x3 and gait normal Extrem General: Yes no clubbing, cyanosis or edema Assessment & Plan Assessment & Plan (1) At high risk for breast cancer: Code(s): Z91.89 - Other specified personal risk factors, not elsewhere classified Category: Medical (2) Family history of breast cancer: Code(s): Z80.3 - Family history of malignant neoplasm of breast Category: Medical Plan 40-year-old female patient determined to be at high risk for breast cancer due to family history returning for a routine by annual screening breast examination. Her most recent breast MRI performed on 09/19/2024 revealed no MR specific evidence of malignancy (BI-RADS 1 bilaterally). Mammogram of 01/10/2025 revealed no mammogram evidence of malignancy (BI-RADS 1). Examination today revealed no suspicious findings in either breast. Her breasts are dense bilaterally diffuse fibrocystic change. She will be scheduled for a follow-up breast MRI in September 2025. I recommended follow-up examination in 6 months. She is welcome to call sooner for any new concerns. Orders: Orders MR breast BI wo/w con 09/20/25 Z80.3 - Family history of malignant neoplasm of breast, Z91.89 - Other specified personal risk factors, not elsewhere classified Coding Level of Care Code Est Pt Level 3 (77964) Complex EM visit Add On G2211 Diagnoses At high risk for breast cancer Z91.89 Family history of breast cancer Z80.3
[2025-05-25 09:49] VITALS: BP 116/61; PULSE 63; BMI 38.1
== END 2025-05-25 09:56 | disposition home or self-care (01) ==
LOC: HO.HGS 09:38
PROVIDERS: PCP Nurse Practitioner Family; Visit Provider Surgery
DX: Z91.89 Other specified personal risk factors, not elsewhere classified (principal); Z80.3 Family history of malignant neoplasm of breast
CPT/HCPCS: 99213

== ENCOUNTER 2025-07-11 08:12 | Outpatient (AMB) | payer OTHER, SELFPAY ==
--- NOTE | 2025-07-11 08:52 | A.OFFVIS_ITS ---
VS Expanded 07/11/25 09:05 Height 5 ft Weight 191 lb 8 oz BMI 37.4 Body Fat % 40.2 Body Fat Mass 77 Fat Free Mass 114.6 Visceral Fat Rating 10 Body Water % 42.8 Body Water Mass 82 Basal Metabolic Rate/Score 1,593 Intake Visit Reasons: [employer] BMI 37.4 Allergies amoxicillin Allergy (Unknown, Verified 07/11/25 08:52) rash naproxen Allergy (Unknown, Verified 07/11/25 08:52) asthma exacerbation Latex Allergy (Unknown, Uncoded 07/11/25 08:52) Unknown Medication List - Last Reconciled 07/11/25 by Ben Harvey MD atorvastatin (Lipitor) 20 mg PO BEDTIME 30 days blood sugar diagnostic (FreeStyle Lite Strips) POC testing TID blood-glucose meter (FreeStyle Lite Meter kit) POC testing TID famotidine 40 mg PO DAILY lancets (FreeStyle Lancets) POC testing TID metformin 500 mg PO BIDWMEAL 30 days HPI HPI [employer] BMI 37.4: Details: Start time: 8.45am, End time: 9.38am ?I spent 48 minutes speaking with the patient on the phone plus an additional 5 minutes reviewing and updating records for a total of 53 minutes HPI Comments Details: Previous weight loss efforts: [place] fat loss: x2 (lost 60lbs x2 Wakes up: 5-6am, Sleeps: 10-11pm Breakfast: occasionally ([employer]: breakfast sandwich) Lunch: 1pm (salad, sandwich, or home food) Dinner: 6-7pm (chicken, vegetables) Snacks: 9-10am (crackers, fruits), after dinner (ice cream) Exercise: none Beverages: Coffee (5/wk: 1 cup/d: creamer), Tea: some in winter, Soda: none, Juice: none, ETOH: none PFSH Medical History (Updated 07/11/25 @ 08:57 by Ben Harvey MD) GERD (gastroesophageal reflux disease) BMI 37.0-37.9, adult Asthma Preeclampsia At high risk for breast cancer Surgical History (Updated 07/04/25 @ 11:38 by Shea Walsh CMA) Hx of hernia repair History of section History of ankle surgery (2006) Family History Father No problems noted. 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 Current occupational exposures/hazards: No Cognitive needs: No Hearing needs: No Vision needs: No Telehealth Telehealth Telehealth Platform: Telephone Location of provider rendering services: practice address Location of patient: address on file Patient Identification confirmed using: Name, : Yes Telehealth method: voice only Patient verbally consented to treatment: Yes Patient verbally consented to billing insurance company: Yes Patient informed of any privacy concerns related to visit: Yes Minutes spent on Phone/Video with Pt.: 53 Assessment & Plan Assessment & Plan (1) Obesity (BMI 30-39.9): Code(s): E66.9 - Obesity, unspecified Category: Medical Plan: 1.? Plan for lap sleeve gastrectomy. If diaphragmatic or ventral hernias are present at time of surgery, these will be repaired laparoscopically as well. I emphasized the importance of close follow-up, adherence to instructions and good communication. The surgery does not replace the need to change your lifestlyle which is the cause of the obesity problem. The surgery provides the motivation to try again to change your lifestyle, it reduces the appetite and make the transition to a better lifestyle easier and doubles the amount of weight you would lose compared to doing the lifestyle change without the surgery. You will need to be on a liquid diet with protein shakes for 2 weeks before surgery to maximize weight loss and boost your nutritional status to recover better from surgery and also for the first two weeks after surgery to let the stomach heal before we introduce other foods. After the first 2 weeks we will introduce protein bars and soft foods like scrambled eggs, cottage cheese and yogurt and after the 6th week will introduce meat, fish and cooked vegetables in small amounts. Over time you should be able to eat everything in small amounts. Side effects like nausea, vomiting, heartburn or abdominal pain are not common in the practice unless you are not following in the practice. This operation requires lifetime commitment to following in our practice and communication with me. You will much less weight and experience side effects if you don?t communicate or not following in the practice. Complications are rare and in our practice is about 1/10 of the national average. However, you can develop bleeding that may require transfusion (hasn?t happened for year in the practice), you may from complications (we did not have any deaths in the practice) and infections. Infections are usually a result of breakdown in communication or not understanding or following directions correctly. They are difficult to treat, they can happen during the first 6 weeks, they may require to be in the hospital for weeks or even months, not being able to eat by mouth and you may have drains and surgeries to try and correct the issue. Other risks and complications include possible conversion to an open procedure, leaks, small bowel obstruction, blood clots, cardiac, or pulmonary complications, as meterman complications such as ulcers, insufficient weight loss and vitamin deficiencies. 2. Nutritional counseling. Start with one CELEBRATE REBUILD protein (buy online with the link I gave you) shakes (HALF scoop in 8oz low fat unsweetened almond milk each) at 7am-9am, 1 protein bar (CELEBRATE protein bars, buy at hospital's gift shop, buy online with the link I gave you) ) at 10am-12pm, another CELEBRATE REBUILD protein shakes (HALF scoop in 8oz low fat unsweetened almond milk each) at 1pm-3pm, another Celebrate protein bar at 4pm-6pm, dinner at 7pm (8 forks of protein and 8 forks of salad/vegetables) AND another HALF protein bar after dinner at 9pm-10pm. So you do 2 protein shakes, 2.5 protein bars and one meal per day. Meal to include lean meat (beef, fish, pork, turkey, chicken), or Pakistani yogurt, or egg whites, or beans with a salad with olive oil and fruits (berries, pears, apples, kiwi). Avoid salt, breads, potatoes, rice, pasta, desserts. 3. Each shake would be drunk slowly, like coffee in a period of 2 hours. 4. Cut each bar in 4 pieces and eat each piece in 30min ?to make each bar last 2 hours. 5. I emphasized the importance of measuring accurately the food portion and measure it when serving the food in plate 6. The meal portions include 8 full-size forks of meat and 8 full-size forks of salad. You always eat the meat portion but you can replace up to 4 forks for salad/vegetables with rice, potatoes or pasta, or a fruit ?if you like. The less you do it the better weight loss will be. 7. One full-size fork is what it can be scooped on the fork without falling aside and not what can be bit with the fork. Use regular forks like those you find in a typical restaurant. 8.? Please buy the body composition scale we discussed and send me weight measurements as soon as possible and then once a week. Always include your diet and exercise plan. 9. Start walking outside daily, tracking calories with a goal of 300 calories per day, daily. Goal is to burn 2000 calories per week on exercise, which means either 300 calories daily, or 400 calories 5 days per week, or 500 calories 4 days per week, or 650 calories 3 days per week. 10. The best choice would be to purchase a stationary bike, elliptical or treadmill at home that can track calories. If you get one, please start stationary bike at a resistance level of 4.0 Increase level by 1.0 every 3 min to a max level of 10.0. Stay at this level for 3 min and then return to level 4.0 and repeat same steps until 300 calories are burned. Goal is to burn 2000 calories per week on exercise 11.?It is important of avoiding and for at least 18 months postoperatively and has been discussed at the infosession. 12. Goal is to lose at least 1.5-2lbs per week 13. Goal to lose 10% of your weight before surgery, which is about 20lbs. Ultimate weight goal: 171lbs before surgery 14. Please follow the diet plan exactly without any change. If you don't like something about the plan or you feel hungry you need to communicate with me so I can help you revise the plan. You should not change the plan yourself 15. To be scheduled for EGD to assess the stomach's anatomy. The possibility of biopsies was discussed. Patient needs to avoid use of NSAIDs and aspirin for 1 week prior to EGD. You must be on liquids only the day before your endoscopy. Risks of perforation and bleeding was discussed with the patient. This will be an outpatient procedure with IV sedation. Orders: Orders Insulin Today E05.90 - Thyrotoxicosis, unspecified without thyrotoxic crisis or storm, E11.9 - Type 2 diabetes mellitus without complications, E66.9 - Obesity, unspecified, E78.5 - Hyperlipidemia, unspecified H Pylori Breath Test Today E05.90 - Thyrotoxicosis, unspecified without thyrotoxic crisis or storm, E11.9 - Type 2 diabetes mellitus without complications, E66.9 - Obesity, unspecified, E78.5 - Hyperlipidemia, unspecified Complete Blood Count Auto Diff Today E05.90 - Thyrotoxicosis, unspecified without thyrotoxic crisis or storm, E11.9 - Type 2 diabetes mellitus without complications, E66.9 - Obesity, unspecified, E78.5 - Hyperlipidemia, unspecified Lipid Panel Today E05.90 - Thyrotoxicosis, unspecified without thyrotoxic crisis or storm, E11.9 - Type 2 diabetes mellitus without complications, E66.9 - Obesity, unspecified, E78.5 - Hyperlipidemia, unspecified IRON PROFILE Today E05.90 - Thyrotoxicosis, unspecified without thyrotoxic crisis or storm, E11.9 - Type 2 diabetes mellitus without complications, E66.9 - Obesity, unspecified, E78.5 - Hyperlipidemia, unspecified Comprehensive Met. Panel Today E05.90 - Thyrotoxicosis, unspecified without thyrotoxic crisis or storm, E11.9 - Type 2 diabetes mellitus without complications, E66.9 - Obesity, unspecified, E78.5 - Hyperlipidemia, unspecified C Reactive Protein Today E05.90 - Thyrotoxicosis, unspecified without thyrotoxic crisis or storm, E11.9 - Type 2 diabetes mellitus without complications, E66.9 - Obesity, unspecified, E78.5 - Hyperlipidemia, unspecified Vitamin D 25-OH Total Today E05.90 - Thyrotoxicosis, unspecified without thyrotoxic crisis or storm, E11.9 - Type 2 diabetes mellitus without complications, E66.9 - Obesity, unspecified, E78.5 - Hyperlipidemia, unspecified US abdomen comp w elastography Today E0 - Thyrotoxicosis, unspecified without thyrotoxic crisis or storm, E11.9 - Type 2 diabetes mellitus without complications, E66.9 - Obesity, unspecified, E78.5 - Hyperlipidemia, unspecified ECG 12 lead EKG Today E0 - Thyrotoxicosis, unspecified without thyrotoxic crisis or storm, E11.9 - Type 2 diabetes mellitus without complications, E66.9 - Obesity, unspecified, E78.5 - Hyperlipidemia, unspecified FL upper GI w air Today E0 - Thyrotoxicosis, unspecified without thyrotoxic crisis or storm, E11.9 - Type 2 diabetes mellitus without complications, E66.9 - Obesity, unspecified, E78.5 - Hyperlipidemia, unspecified Hemoglobin A1c Today E0 - Thyrotoxicosis, unspecified without thyrotoxic crisis or storm, E11.9 - Type 2 diabetes mellitus without complications, E66.9 - Obesity, unspecified, E78.5 - Hyperlipidemia, unspecified Vitamin B12 and Folate Today E0 - Thyrotoxicosis, unspecified without thyrotoxic crisis or storm, E11.9 - Type 2 diabetes mellitus without complications, E66.9 - Obesity, unspecified, E78.5 - Hyperlipidemia, unspecified Zinc Today E0 - Thyrotoxicosis, unspecified without thyrotoxic crisis or st orm, E11.9 - Type 2 diabetes mellitus without complications, E66.9 - Obesity, unspecified, E78.5 - Hyperlipidemia, unspecified Vitamin B1 Today E0 - Thyrotoxicosis, unspecified without thyrotoxic crisis or storm, E11.9 - Type 2 diabetes mellitus without complications, E66.9 - Obesity, unspecified, E78.5 - Hyperlipidemia, unspecified Vitamin A Today E0 - Thyrotoxicosis, unspecified without thyrotoxic crisis or storm, E11.9 - Type 2 diabetes mellitus without complications, E66.9 - Obesity, unspecified, E78.5 - Hyperlipidemia, unspecified TSH reflex Free T4 Today E0 - Thyrotoxicosis, unspecified without thyrotoxic crisis or storm, E11.9 - Type 2 diabetes mellitus without complications, E66.9 - Obesity, unspecified, E78.5 - Hyperlipidemia, unspecified Ferritin Today E0 - Thyrotoxicosis, unspecified without thyrotoxic crisis or storm, E11.9 - Type 2 diabetes mellitus without complications, E66.9 - Obesity, unspecified, E78.5 - Hyperlipidemia, unspecified XR chest 2V Today E05.90 - Thyrotoxicosis, unspecified without thyrotoxic crisis or storm, E11.9 - Type 2 diabetes mellitus without complications, E66.9 - Obesity, unspecified, E78.5 - Hyperlipidemia, unspecified Referrals Behavioral Health Referral E05.90 - Thyrotoxicosis, unspecified without thyrotoxic crisis or storm, E11.9 - Type 2 diabetes mellitus without complications, E66.9 - Obesity, unspecified, E78.5 - Hyperlipidemia, unspecified Nutrition/Dietitian Referral E05.90 - Thyrotoxicosis, unspecified without thyrotoxic crisis or storm, E11.9 - Type 2 diabetes mellitus without complications, E66.9 - Obesity, unspecified, E78.5 - Hyperlipidemia, unspecified
[2025-07-11 09:05] VITALS: BMI 37.4
== END 2025-07-11 09:38 | disposition home or self-care (01) ==
LOC: HO.HBS 08:12
PROVIDERS: PCP Nurse Practitioner Family; Visit Provider Surgery
DX: E66.9 Obesity, unspecified (principal); Z68.37 Body mass index [BMI] 37.0-37.9, adult
CPT/HCPCS: 99204

== ENCOUNTER 2025-07-11 08:12 | Outpatient (REF) | payer OTHER, SELFPAY ==
--- NOTE | ~2025-07-11 | XR_ITS ---
EXAMINATION: XR CHEST 2 VIEWS HISTORY: E66.9 - Obesity, unspecified COMPARISON: There are no prior studies available for comparison. FINDINGS: PA and lateral views of the chest are submitted. The lungs are expanded and clear. There is no pleural effusion, pneumothorax, or pulmonary vascular congestion. The heart is normal in size. There is mild degenerative disc disease of the spine. XR/XR chest 2V IMPRESSION: Clear lungs. Electronically signed by: Silviano Membreno MD 07/11/2025 11:30 AM BECKY
[2025-07-11 10:44] LABS: MANUAL DIFF FLAG NO
--- NOTE | 2025-07-11 10:45 | ECG_ITS ---
Test Reason : E66.9 Blood Pressure : */* mmHG Vent. Rate : 57 BPM Atrial Rate : 57 BPM P-R Int : 138 ms QRS Dur : 82 ms QT Int : 410 ms P-R-T Axes : 20 41 24 degrees QTcB Int : 399 ms Sinus bradycardia Otherwise normal ECG No previous ECGs available Referred By: Ben Harvey Electronically Signed By: Brenton Bower
[2025-07-11 10:57] LABS: Hematocrit 38.4 % (37.0-47.0); Hemoglobin 12.9 g/dl (12.0-16.0); Imm Gran Abs Auto 0.03 X10*3/uL (0.00-0.03); Imm Gran Pct Auto 0.4 % (0.0-0.4); Lymphocytes Absolute Auto 2.5 X10*3/uL (1.2-4.9); Mean Corpuscular HGB Conc 33.6 g/dl (31.0-35.0); Mean Corpuscular Hemoglobin 30.2 pg (27.0-33.0); Mean Corpuscular Volume 89.9 fL (80.0-98.0); NRBC Abs Auto 0.000 X10*3/uL (0.0-0.012); NRBC Pct Auto 0.0 /100WBC (0.0-0.2); Platelet Count 211 X10*3/uL (160-400); Red Blood Count 4.27 X10*6/uL (4.20-5.50); White Blood Count 7.6 X10*3/uL (4.8-10.8)
[2025-07-11 11:29] LABS: Alanine Aminotransferase 36 U/L (0-31); Albumin Level 4.5 g/dL (3.5-5.0); Alkaline Phosphatase 73 U/L (39-117); Anion Gap 10 (12-20); Aspartate Amino Transferase 24 U/L (5-31); Blood Urea Nitrogen 13 mg/dL (9-16); Calcium 9.2 mg/dL (8.4-10.2); Carbon Dioxide 29 mmol/L (22-29); Chloride 104 mmol/L (96-108); Cholesterol 167 mg/dL (<200); Estimated Glomerular Filt Rate > 60; HDL Cholesterol 41 mg/dL (>40); Iron 95 mcg/dL (30-160); Percent Iron Saturation 31 % (15-50); Potassium 4.3 mmol/L (3.3-5.1); Sodium 139 mmol/L (135-145); Total Iron Binding Capacity 307 mcg/dL (228-428); Total Protein 7.4 g/dL (6.5-8.0); Triglycerides 104 mg/dL (<150); Unsaturated Iron Binding 212 ug/dL
[2025-07-11 11:48] LABS: Ferritin 86 ng/mL (10-250)
[2025-07-11 11:52] LABS: Folate 12.1 ng/mL (> or = 4.0); Vitamin B12 457 pg/mL (200-900)
== END 2025-07-11 08:13 | disposition home or self-care (01) ==
LOC: HO.XRAY 08:12
PROVIDERS: Absent Provider Nurse Practitioner Family; PCP Nurse Practitioner Family; Visit Provider Surgery
DX: E66.9 Obesity, unspecified (principal); E11.9 Type 2 diabetes mellitus without complications; E78.5 Hyperlipidemia, unspecified; E05.90 Thyrotoxicosis, unspecified without thyrotoxic crisis or storm; Z79.899 Other long term (current) drug therapy; Z79.84 Long term (current) use of oral hypoglycemic drugs; Z68.37 Body mass index [BMI] 37.0-37.9, adult
CPT/HCPCS: 36415; 71046; 80053; 80061; 82306; 82607; 82728; 82746; 83036; 83525; 83540; 84425; 84443; 84590; 84630; 85025; 86140; 93005

== ENCOUNTER → 2025-07-11 10:45 | Outpatient (BNV) | payer OTHER, SELFPAY | PROVIDERS: Absent Provider Nurse Practitioner Family; PCP Nurse Practitioner Family; Visit Provider Internal Medicine Cardiovascular Disease | DX: R00.1 Bradycardia, unspecified (principal) | CPT/HCPCS: 93010 ==

== ENCOUNTER → 2025-07-11 10:54 | Outpatient (BNV) | payer OTHER, SELFPAY | PROVIDERS: Absent Provider Nurse Practitioner Family; PCP Nurse Practitioner Family; Visit Provider Radiology Diagnostic Radiology | DX: E66.9 Obesity, unspecified (principal) | CPT/HCPCS: 71046 ==

== ENCOUNTER 2025-07-13 10:44 | Outpatient (AMB) | payer OTHER, SELFPAY ==
--- NOTE | 2025-07-13 10:52 | MHC.PC.OV ---
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 Is last menstrual period known: Yes Last menstrual period: 06/18/25 Post menopausal: No Patient : No Allergies amoxicillin Allergy (Unknown, Verified 07/13/25 11:11) rash naproxen Allergy (Unknown, Verified 07/13/25 11:11) asthma exacerbation Latex Allergy (Unknown, Uncoded 07/13/25 11:11) Unknown Medication List - Last Reconciled 07/13/25 by Bin Urbina CNP atorvastatin (Lipitor) 20 mg PO BEDTIME 30 days blood sugar diagnostic (FreeStyle Lite Strips) POC testing TID blood-glucose meter (FreeStyle Lite Meter kit) POC testing TID famotidine 40 mg PO DAILY lancets (FreeStyle Lancets) POC testing TID metformin 500 mg PO BIDWMEAL 30 days Tobacco use date assessed: 07/13/25 Dental Screening Dental Screen Date: 07/13/25 Did you have a dental visit in the last 12 months?: Yes Did you have a dental problem in the last 6 months where you did not have access to dental care?: No Was dental information given to patient?: Patient has dentist HPI HPI Comments History of Present Illness Details 40-year-old female presents for diabetes, hyperlipidemia, and microalbuminuria follow-up. She admits to taking her medications as prescribed without adverse reactions. She notes that her FBG average between 130-145 and random glucose average between 185-200. She notes that she has been making healthy lifestyle changes. She offers no complaints and denies acute symptoms at this time. Urine microalbumin lab work not done for this visit because it was inadvertently ordered for 6 months instead of 6 weeks. [facility] Medical History (Updated 07/13/25 @ 11:13 by Bin Urbina CNP) GERD (gastroesophageal reflux disease) BMI 37.0-37.9, adult Asthma Preeclampsia At high risk for breast cancer Surgical History (Updated 07/04/25 @ 11:38 by Shea Walsh CMA) Hx of hernia repair History of section History of ankle surgery (2006) Family History Father No problems noted. 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 Current occupational exposures/hazards: No Cognitive needs: No Hearing needs: No Vision needs: No Female Reproductive History Menstrual Date of last menstrual period: 06/18/25 Questionnaire Thrive Questionnaire Date Thrive assessed: 02/09/25 I am a: Patient What is your living situation today?: I have a steady place to live Within the past 12 months, did the food you bought not last and you didn't have the money to get more?: Never true Within the past 12 months, did you worry whether your food would run out before you got money to buy more?: Never true Do you have trouble paying for medicines?: No Do you have trouble getting transportation to medical appointments?: No Do you have trouble paying your heating and electricity bill?: No Do you have trouble taking care of your child, family member or friend?: No Do you have trouble with day-to-day activities such as bathing, preparing meals, shopping, managing finances, etc.?: No Are you currently unemployed and looking for a job?: No Are you interested in more education?: No Please select the resources that you would like help with: None Currently or been in a relationship where the following occur: No concerns reported THRIVE Score: 0 CARL-7 AMB Questionnaire CARL-7 Date CARL - 7 assessed: 02/16/25 Source: Developed by Drs. Silviano Queen, Jackie Mansfield, Moises Headley and colleagues, with an educational daxa from [employer]. Review of Systems Const Details: Const Denies chills, Denies fatigue, Denies fever(s), Denies headache(s) and Denies weakness ENT Denies dizziness and Denies headache(s) Card Denies chest pain, Denies lightheadedness, Denies dyspnea and Denies other (Palpitations) Resp Denies cough, Denies dyspnea, Denies wheezing and Denies other ( shortness of breath) GI Denies abdominal pain, Denies melena, Denies hematochezia, Denies change in bowel habits, Denies dyspepsia and Denies nausea Denies hematuria and Denies dysuria Musc Denies abnormal gait, Denies myalgias, Denies arthralgias, Denies numbness and Denies tingling Skin/Breast Denies rash, Denies unusual bruising and Denies wounds Neuro Denies abnormal gait, Denies dizziness, Denies headache(s), Denies memory loss, Denies numbness, Denies Sensory deficit (Neuro), Denies tingling and Denies weakness Psych Denies anxiety, Denies depression, Denies memory loss Endo Denies cold intolerance, Denies fatigue, Denies heat intolerance, Denies polydipsia and Denies polyuria Aller/Immun Denies wheezing Physical exam (Primary Care) Vital Signs: Last Vital Signs Temp 98.2 F 07/13/25 11:00 Pulse 58 07/13/25 11:00 Resp 16 07/13/25 11:00 BP 108/51 L 07/13/25 11:00 Pulse Ox 100 07/13/25 11:00 Oxygen Delivery Method Room Air 07/13/25 11:00 BMI result Body Mass Index 38.1 Tobacco/Smoking Status: Tobacco use Status Tobacco use date assessed 07/13/25 07/13/25 11:04 Patient Tobacco Use Status Former Tobacco user 07/13/25 10:54 Tobacco use type Cigarette 07/13/25 10:54 e-Cigarette/Vaping Use Never Used 07/13/25 10:54 Thrive Assessment: Date of Thrive Assessment Date Thrive assessed 02/09/25 07/13/25 10:54 Currently or been in a relationship where the following occur: No concerns reported Const Other: General: no acute distress and well developed Nutritional Appearance: well nourished Orientation/consciousness: patient oriented x3 [facility] Head: Yes normocephalic and Yes atraumatic Eyes General: appearance normal, both eyes and all related structures Pupils: Equal, round and reactive pupils present EOM: EOMs intact bilaterally Resp Effort & Inspection: normal respiratory effort Auscultation: clear to auscultation bilaterally Cardio Rate: regular rate Rhythm: regular rhythm Heart sounds: S1 normal heart sound present, S2 normal heart sound present, no gallops, no murmurs and no rubs GI Palpation (GI): No Abdominal aortic bruit present, Soft to palpation, nontender, No hepatosplenomegaly present and No Rebound tenderness present Auscultation: normal bowel sounds General: Yes no CVA tenderness Back/Spine/Pelvis Back: no CVA tenderness Cervical Spine: cervical ROM normal and No Cervical spine tenderness Thoracic/Lumbar Spine: thoraco-lumbar ROM normal, No pain with thoraco-lumbar ROM, No thoracic spinal tenderness and No lumbar spinal tenderness Extrem General: Yes normal to inspection, No edema and No calf tenderness Skin General: warm and dry. Normal skin color. Normal skin turgor Neuro General: patient oriented x3, gait normal and no focal neuro deficit Cranial nerves: Yes Equal, round and reactive pupils present Cognition (Neuro): normal cognition Gait exam (Neuro): Normal gait present Sensory Exam: No Sensory deficit (Neuro) Psych Appearance: grossly normal Affect: normal affect Attitude: cooperative Thought process: Normal thought process present Coding Level of Care Code Est Pt Level 4 (41464) Diagnoses Diabetes E11.9 Hyperlipidemia E78.5 Vitamin D deficiency E55.9 Assessment & Plan Assessment & Plan (1) Diabetes: Code(s): E11.9 - Type 2 diabetes mellitus without complications Category: Medical Plan: Previous A1c in May was 8.2%. Her A1c 2 days ago with [facility] weight management was 7.5%. Continue current treatment regimen. Follow-up in 2 months for transfer of care with new PCP, hyperlipidemia, vitamin-D deficiency, and microalbuminuria. Return sooner with symptoms or concerns. Verbalized understanding and agreed with the plan. (2) Hyperlipidemia: Code(s): E78.5 - Hyperlipidemia, unspecified Category: Medical Plan: Recent LDL level is slightly elevated, 106, triglycerides, total cholesterol, and HDL levels are normal. Advised to limit foods high in saturated fat and avoid foods high in trans fat. Routine exercise encouraged. Fast for 10-12 hours, may drink water, and perform lipid panel blood work a few days before next visit. Follow-up in 2 months. Verbalized understanding and agreed with the plan. (3) Vitamin D deficiency: Code(s): E55.9 - Vitamin D deficiency, unspecified Category: Medical Plan: Vitamin-D level was checked by [facility] weight management clinic 2 days ago and was 18.3. Vitamin D3 50 mcg daily ordered; advised to take as prescribed. Will recheck vitamin-D level in 2 months. Verbalized understanding and agreed with the plan. Orders: Orders Microalbumin, Random (w Creat) Today R80.9 - Proteinuria, unspecified Lipid Panel 2 Months E78.5 - Hyperlipidemia, unspecified Vitamin D 25-OH Total 2 Months E55.9 - Vitamin D deficiency, unspecified Medications: New cholecalciferol (vitamin D3) 50 mcg PO DAILY 90 tabs 1RF 90 days
[2025-07-13 11:00] VITALS: BP 108/51; PULSE 58; RESP 16; TEMP 36.8; O2SAT 100; BMI 38.1
== END 2025-07-13 11:36 | disposition home or self-care (01) ==
LOC: HO.HMCFM 10:45
PROVIDERS: PCP Nurse Practitioner Family; Visit Provider Nurse Practitioner Family
DX: E11.9 Type 2 diabetes mellitus without complications (principal); E78.5 Hyperlipidemia, unspecified; E55.9 Vitamin D deficiency, unspecified

== ENCOUNTER 2025-07-13 10:44 | Outpatient (REF) | payer OTHER, SELFPAY ==
[2025-07-13 14:58] LABS: Microalbum/Creatinine Ratio Ur 36.1 ug/mg cr (<30)
== END 2025-07-13 10:45 | disposition home or self-care (01) ==
LOC: HO.WFDLDS 10:44
PROVIDERS: PCP Nurse Practitioner Family; Visit Provider Nurse Practitioner Family
DX: R80.9 Proteinuria, unspecified (principal)
CPT/HCPCS: 82043; 82570

== ENCOUNTER → 2025-07-25 13:45 | Outpatient (REF) | payer OTHER, SELFPAY | LOC: HO.SL 13:45 | PROVIDERS: PCP Nurse Practitioner Family; Visit Provider Physician Assistant Medical | DX: G47.19 Other hypersomnia (principal) | CPT/HCPCS: 95806 ==

== ENCOUNTER → 2025-07-25 14:05 | Outpatient (BNV) | payer OTHER, SELFPAY | PROVIDERS: PCP Nurse Practitioner Family; Visit Provider Psychiatry & Neurology Neurology | DX: G47.19 Other hypersomnia (principal) | CPT/HCPCS: 95806 ==

== ENCOUNTER 2025-08-08 10:37 | Outpatient (AMB) | payer OTHER, SELFPAY ==
--- NOTE | 2025-08-08 11:00 | MHC.WMTHER ---
Intake Intake Visit Reasons: OV BH Intake Allergies amoxicillin Allergy (Unknown, Verified 07/13/25 11:11) rash naproxen Allergy (Unknown, Verified 07/13/25 11:11) asthma exacerbation Latex Allergy (Unknown, Uncoded 07/13/25 11:11) Unknown [facility] Medical History (Updated 07/13/25 @ 11:13 by Bin Urbina CNP) GERD (gastroesophageal reflux disease) BMI 37.0-37.9, adult Asthma Preeclampsia At high risk for breast cancer Surgical History (Updated 07/04/25 @ 11:38 by Shea Walsh [facility]) Hx of hernia repair History of section History of ankle surgery (2006) Family History Father No problems noted. 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 She reports a lifelong struggle with weight management, having attempted multiple diets with initial success but subsequent weight regain. She notes significant difficulty with weight loss since the of her son three years ago. Her primary motivation is to improve her overall health and pursue bariatric surgery as a means to achieve sustained weight loss. Presenting Concerns Referral Source WMP-Provider Reason for referral Completion of behavioral health assessment as part of process for weight-loss surgery. Precipitating Event Obesity Living Situation Current Living Situation Own At risk of losing current housing? No Satisfied with current living situation? No Comments Pt lives with her son. Food/Weight/Diet Expectations of change PT started the program at 191Lbs, and the initial goal is to lose 10% of your weight before surgery, which is about 20lbs. Ultimate weight goal: 171lbs before surgery. PT recalls her weight today was 184Lbs. Patient wants to be at 130Lbs Post-op or lower. PT is implementing the following: Current meal plan: 2 protein shakes, 2.5 protein bars and one meal per day. Exercise plan: Scale: yes Communication w/ provider: sending measures on wednesdays. History/Relationship with food The patient reports ongoing challenges with sugar cravings, which she attributes to patterns established in childhood, including reliance on food for comfort during periods of boredom or stress. She has participated in various weight management programs and recognizes her ability to adopt healthy lifestyle changes; however, she notes difficulty resuming these habits after setbacks. Example of meals before starting the program: Breakfast: occasionally ([employer]: breakfast sandwich) Lunch: 1pm (salad, sandwich, or home food) Dinner: 6-7pm (chicken, vegetables) Snacks: 9-10am (crackers, fruits), after dinner (ice cream) Beverages: Coffee (5/wk: 1 cup/d: creamer), Tea: some in winter, Soda: none, Juice: none, ETOH: none History/Relationship with weight The patient reports lifelong difficulties with weight management. She notes that weight loss has been particularly challenging since her , with less success compared to her pre- efforts. Over the past 10 years, her weight has ranged from a low of 147 lbs to a high of 225 lbs. History/Relationship with dieting WMP at [place] fat loss (went down to 150Lbs at age 28/ the second time she was 35 she went down to 147Lbs), [facility] (lost 30Lbs, then would gain the weight back), multiple diets. Social History Family history and relationship PT is in 2022 but recently , they were together for 6 years she has a 3 y/o son. PT has 2 siblings and 1 stepbrother. Parents are alive, they have been for several years. 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 Developmental history and status WNL. Social support Family, some close friends. Community support None Latter-Day/Spirituality None Cultural/Ethnic information White, . Legal Involvement and History Current or historical involvement with the legal system? None. Education Highest grade completed Bachelors degree. Preferred learning style Auditory, Verbal, Written, Learn by doing and Visual Currently enrolled in educational program? No Interested in further educational program? No Educational Interests/Skills baking. 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 ) Wants help to find employment? No Meaningful activities Wellness activities. Financial Situation Financial assistance? None Service Service? No Mental Health and Addiction Treatment Current/Past substance abuse? No Comments Alcohol: Couple times at year. 1-2 drinks. Cigarettes/Tobacco: None. Quit in 2018. Cannabis/Edibles: None. Current/Past addictive behavior concerns? No Psychiatric history PT reports no prior counseling treatment and denies ever been in crisis or inpatient for mental health. There is no history and/or current concern about SI/Sa and self-harm or other harm. She is interested in start counseling to management life adjustments she's going trought. Medical and Physical Health Summary Additional Medical History not covered in history None aditional Sexual History concerns None reported. Physical exam in the last year? Yes Pain Screening Current pain? No Pain in the last few months? Yes Comments Knee and ankle pain. Medications Is the patient compliant with medications? Yes Does the patient have Jaramillo Guardian in place? Not applicable Does the patient use complimentary health approaches? No Trauma/Abuse History History of trauma? Yes (Difficult childhood. ) Physical Neglect Past Emotional Neglect Past Questionnaires PHQ-9 Over the last 2 weeks, how often have you been bothered by any of the following problems? 1. Little interest or pleasure in doing things: several days 2. Feeling down, depressed, or hopeless: several days 3. Trouble falling or staying asleep, or sleeping too much: several days 4. Feeling tired or having little energy: several days 5. Poor appetite or overeating: not at all 6. Feeling bad about yourself - or that you are a failure or have let yourself or your family down: not at all 7. Trouble concentrating on things, such as reading the newspaper or watching television: not at all 8. Moving or speaking so slowly that other people could have noticed. Or the opposite - being so fidgety or restless that you have been moving around a lot more than usual: not at all 9. Thoughts that you would be better off or of hurting yourself in some way: not at all Total score: 4 Depression Screening Interpretation: Negative (Previous score: 4) Depression Screening Done: Yes 91631 - PHQ-9 Billing: Yes Source: Developed by Drs. Silviano Queen, Jackie Mansfield, Moises Headley and colleagues, with an educational daxa from [employer]. Binge Eating Scale Group 1 A. I don't feel self-conscious about my wt. or body size when I'm with others. B. I feel concerned about how I look to others, but it normally does not make me fell disappointed with myself C. I do get self-conscious about my appearance and wt. which makes me feel disappointed in myself. D. I feel very self-conscious about my wt. and frequently I feel intense shame and disgust for myself. I try to avoid social contacts because of my self-consciousness. Response Group 1: C Group 2 A. I don't have any difficulty eating slowly in the proper manner. B. Although I seem to gobble down foods, I don't end up feeling stuffed because of eating to much. C. At times, I tend to eat quickly and then, I feel uncomfortably full afterwards. D. I have the habit of bolting down my food, without really chewing it. When this happens I usually feel uncomfortably stuffed because I've eaten to much. Response Group 2: A Group 3 A. I feel capable to control my eating urges when I want to. B. I feel like I have failed to control my eating more than the average person. C. I feel utterly helpless when it comes to feeling in control of my eating urges. D. Because I feel so helpless about controlling my eating I have become very desperate about trying to get control. Response Group 3: A Group 4 A. I don't have the habit of eating when I'm bored. B. I sometimes eat when I'm bored, but often I'm able to get busy and get my mind off food. C. I have a regular habit of eating when I'm bored, but occasionally, I can use some other activity to get my mind off eating. D. I have a strong habit of eating when I'm bored. Nothing seems to help me breath the habit. Response Group 4: B Group 5 A. I'm usually physically hungry when I eat something. B. Occasionally, I eat something on impulse even though I really am not hungry. C. I have the regular habit of eating foods, that I might not really enjoy, to satisfy a hungry feeling even though physically, I don't need the food. D. Although I'm not physically hungry, I get a hungry feeling in my mouth that only seems to be satisfied when I eat a food, like sandwich, that fills my mouth. Sometimes, when I eat the food to satisfy my mouth hunger, I then spit the food out so I won't gain weight. Response Group 5: B Group 6 A. I don't feel any guilt or self-hate after I overeat. B. After I overeat, occasionally I feel guilt or self-hate. C. Almost all the time I experience strong guilt or self-hate after I overeat. Response Group 6: B Group 7 A. I don't lose total control of my eating when dieting even after periods when I overeat. B. Sometimes when I eat a forbidden food on a diet, I feel like I blew it and eat even more. C. Frequently, I have the habit of saying to myself, I've blown it now, why not go all the way, when I overeat on a diet. When that happens I eat more. D. I have a regular habit of starting a strict diets for myself but I break the diets by going on an eating binge. My life seems to be either a feast or famine. Response Group 7: B Group 8 A. I rarely eat so much food that I feel uncomfortably stuffed afterwards. B. Usually about once a month, I each such a quantity of food, I end up feeling very stuffed. C. I have regular periods during the month when I eat large amounts of food, either at mealtime or at snacks. D. I eat so much food that I regularly feel quite uncomfortable after eating and sometimes a bit nauseous. Response Group 8: A Group 9 A. My level of calorie intake does not go up very high or go down very low on a regular basis. B. Sometimes after I overeat, I will try to reduce my caloric intake to almost nothing to compensate for the excess calories I've eaten. C. I have a regular habit of overeating during the night. It seems that my routine is not to be hungry in the morning but overeat in the evening. D. In my adult years, I have had week-long periods where I practically starve myself. This follows periods when I overeat. It seems I live a life of either feast or famine. Response Group 9: B Group 10 A. I usually am able to stop eating when I want to. I know when enough is enough. B. Every so often, I experience a compulsion to eat which I can't seem to control. C. Frequently, I experience strong urges to eat which I seem unable to control, but at other times I can control my eating urges. D. I feel incapable of controlling urges to eat. I have a fear of not being able to stop eating voluntarily. Response Group 10: B Group 11 A. I don't have any problem stopping eating when I feel full. B. I usually can stop eating when I feel full but occasionally overeat leaving me feeling uncomfortably stuffed. C. I have a problem stopping eating once I start and usually I feel uncomfortably stuffed after I eat a meal. D. Because I have a problem not being able to stop eating when I want, I sometimes have to induce vomiting to relieve my stuffed feeling. Response Group 11: A Group 12 A. I seem to eat just as much when I'm with others, Family social gatherings as when I'm by myself. B. Sometimes, when I'm with other persons, I don't eat as much as I want to eat because I'm self-conscious about my eating. C. Frequently, I eat only a small amount of food when others are present, because I'm very embarrassed about my eating. D. I feel so ashamed about overeating that I pick times to overeat when I know no one will see me. I feel like a closet eater. Response Group 12: A Group 13 A. I eat three meals a day with only an occasional between meal snack. B. I eat 3 meals a day, but I also normally snack between meals. C. When I am snacking heavily, I get in the habit of skipping regular meals. D. There are regular periods when I seem to be continually eating, with no planned meals. Response Group 13: A Group 14 A. I don't think much about trying to control unwanted eating urges. B. At least some of the time, I feel my thoughts are pre-occupied with trying to control my eating urges. C. I feel that frequently I spend much time thinking about how much I ate or about trying not to eat anymore. D. It seems to me that most of my waking hours are pre-occupied by thoughts about eating or not eating. I feel like I'm constantly struggling not to eat. Response Group 14: B Group 15 A. I don't think about food a great deal. B. I have strong craving for food but they last only for brief periods of time. C. I have days when I can't seem to think about anything else but food. D. Most of my days seem to be pre-occupied with thoughts about food. I feel like I live to eat. Response Group 15: B Group 16 A. I usually know whether or not I'm physically hungry. I take the right portion of food to satisfy me. B. Occasionally, I feel uncertain about knowing whether or not I'm physically hungry. A these times it's hard to know how much food I should take to satisfy me. C. Even though I might know how many calories I should eat, I don't have any idea what is a normal amount of food for me. Response Group 16: A Binge Eating Score: 10 Score less than 17 Minimal Risk Score between 18-26 Moderate Risk Score between 27-46 High Risk Assessment & Plan Assessment & Plan (1) Adjustment disorder: Code(s): F43.20 - Adjustment disorder, unspecified Qualifiers: Adjustment disorder type: unspecified type Qualified Code(s): F43.20 - Adjustment disorder, unspecified (2) Pre-bariatric surgery psychological evaluation: Code(s): Z71.89 - Other specified counseling Plan The patient has been cleared from a behavioral health perspective and is eligible for submission for insurance approval when appropriate. A preoperative behavioral health follow-up is scheduled for September to provide ongoing support and preparation. An additional behavioral health appointment will be arranged 1?4 weeks postoperatively to assess psychological adjustment and screen for any emerging concerns. Next scheduled appointment: 09/26/2025 at 11:00 AM (office visit). [place] [address] Psy Diag Eval Patient Type New Diagnoses Adjustment disorder, unspecified type F43.20 Adjustment disorder type: unspecified type Pre-bariatric surgery psychological evaluation Z71.89 Additional Codes PHQ-9 - 62770 - PHQ-9 Billing: Yes ([id number]) Time Spent (min) 60
== END 2025-08-08 12:13 | disposition home or self-care (01) ==
LOC: HO.HBST 10:37
PROVIDERS: PCP Nurse Practitioner Family; Visit Provider Counselor Mental Health
DX: F43.20 Adjustment disorder, unspecified (principal); Z71.89 Other specified counseling
CPT/HCPCS: 90791

== ENCOUNTER 2025-08-21 06:00 | Day surgery (SDC) | payer OTHER, SELFPAY ==
[2025-08-17 07:59] VITALS: BMI 37.3
[2025-08-21 06:42] VITALS: BMI 36.2
[2025-08-21 06:50] LABS: UPreg QC Valid YES
[2025-08-21] MEDS: Lactated Ringers 1,000 ML 100 ML IVCONT (06:53)
[2025-08-21 06:56] VITALS: BP 112/68; PULSE 56; RESP 16; TEMP 36.6; O2SAT 100
[2025-08-21 06:58] LABS: Glucose, Whole Blood 150 mg/dL (60-115)
--- NOTE | 2025-08-21 07:18 | HO.ANESPROP2 ---
Documented by User: Rebekah Sandoval NP 08/16/25 14:33 HPI - Anesthesia Eval Consult details Narrative: 40yo F for Upper Endoscopy PMFSH Active Problems Active Problems: All Active Problems Vitamin D deficiency (Acute) GERD (gastroesophageal reflux disease) (Acute) BMI 37.0-37.9, adult (Acute) Diabetes (Acute) Excessive daytime sleepiness (Acute) Myopia (Acute) Pap smear for cervical cancer screening (Acute) Obesity (BMI 30-39.9) (Acute) Sleep disturbance (Acute) Microalbuminuria (Acute) Hyperlipidemia (Acute) Prediabetes (Acute) Family history of breast cancer (Acute) Elevated ALT measurement (Acute) Hypercholesterolemia (Acute) Subclinical hyperthyroidism (Acute) Elevated fasting glucose (Acute) Morbid obesity with BMI of 40.0-44.9, adult (Acute) Laboratory tests ordered as part of a complete physical exam (CPE) (Acute) Normal physical exam (Acute) At high risk for breast cancer (Acute) Past Medical History Medical History (Updated 08/21/25 @ 06:41 by Reshma Jeffery RN) Sleep apnea GERD (gastroesophageal reflux disease) BMI 37.0-37.9, adult Asthma Preeclampsia At high risk for breast cancer Family History Family History Father No problems noted. Mother History of benign breast biopsy Paternal Grandfather History of lung cancer History of diabetes mellitus Maternal Grandmother History of lung cancer History of breast cancer Paternal Aunt History of breast cancer, Onset Age: 40 Paternal Aunt History of melanoma, Onset Age: 17 Surgical History Surgical History Hx of hernia repair History of section History of ankle surgery (2006) Social History Social History Housing: House Patient Tobacco Use Status: Former Tobacco user Tobacco use type: Cigarette Cigarette Packs Per Day: 0.5 Cigarettes Per Day: 10 Years Smoked: 11 e-Cigarette/Vaping Use: Never Used Use of substances other than those prescribed or required for medical reasons: No Advance Directives: No Advance Directives Information Provided: Yes service: No Current occupational status: employed 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 Current occupational exposures/hazards: No Cognitive needs: No Hearing needs: No Vision needs: No Meds Allergies Allergy/AdvReac Type Severity Reaction Status Date / Time amoxicillin Allergy Unknown rash Verified 07/13/25 11:11 naproxen Allergy Unknown asthma Verified 07/13/25 11:11 exacerbation Latex Allergy Unknown Unknown Uncoded 07/13/25 11:11 Home Medications ?Medication ?Instructions ?Recorded ?Confirmed ?Last Taken ?Type famotidine 40 mg tablet 40 mg PO DAILY 07/11/25 08/17/25 Unknown History Assessment and Plan Assessment Anesthesia Assessment: Chart Reviewed Documented by User: Kasandra Neville DO 08/21/25 07:19 PMF Past Medical History Medical History (Updated 08/21/25 @ 06:41 by Reshma Jeffery RN) Sleep apnea GERD (gastroesophageal reflux disease) BMI 37.0-37.9, adult Asthma Preeclampsia At high risk for breast cancer Family History Family History Father No problems noted. Mother History of benign breast biopsy Paternal Grandfather History of lung cancer History of diabetes mellitus Maternal Grandmother History of lung cancer History of breast cancer Paternal Aunt History of breast cancer, Onset Age: 40 Paternal Aunt History of melanoma, Onset Age: 17 Family history of problems with anesthesia: No Surgical History Surgical History Hx of hernia repair History of section History of ankle surgery (2006) History of Problems with Anesthesia: No Social History Social History Housing: House Patient Tobacco Use Status: Former Tobacco user Tobacco use type: Cigarette Cigarette Packs Per Day: 0.5 Cigarettes Per Day: 10 Years Smoked: 11 e-Cigarette/Vaping Use: Never Used Use of substances other than those prescribed or required for medical reasons: No Advance Directives: No Advance Directives Information Provided: Yes service: No Current occupational status: employed 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 Current occupational exposures/hazards: No Cognitive needs: No Hearing needs: No Vision needs: No Meds Allergies Allergy/AdvReac Type Severity Reaction Status Date / Time amoxicillin Allergy Unknown rash Verified 07/13/25 11:11 naproxen Allergy Unknown asthma Verified 07/13/25 11:11 exacerbation Latex Allergy Unknown Unknown Uncoded 07/13/25 11:11 Home Medications ?Medication ?Instructions ?Recorded ?Confirmed ?Last Taken ?Type famotidine 40 mg tablet 40 mg PO DAILY 07/11/25 08/17/25 Unknown History Exam Exam Date and Time: 08/21/25 0718 Height,Weight and Vital Signs: Height 5 ft Weight 84.2 kg Vital Signs Temperature 97.8 F 08/21/25 06:56 Pulse Rate 56 08/21/25 06:56 Respiratory Rate 16 08/21/25 06:56 Blood Pressure 112/68 08/21/25 06:56 Pulse Oximetry 100 08/21/25 06:56 Oxygen Delivery Method Room Air 08/21/25 06:56 Temperature 97.8 F 08/21/25 06:56 Pulse Rate 56 08/21/25 06:56 Respiratory Rate 16 08/21/25 06:56 Blood Pressure 112/68 08/21/25 06:56 Pulse Oximetry 100 08/21/25 06:56 Oxygen Delivery Method Room Air 08/21/25 06:56 Airway Mallampati Class: I TM Dist: >3cm Neck ROM: Full Loose/Missing/Broken Teeth: No (patient denies any loose or broken teeth) Heart: S1S2 Lungs: CTAB Assessment and Plan Assessment Anesthesia Assessment: Anesthesia Plan Discussed and Chart Reviewed Final Anesthetic Review Family History of Problems with Anesthesia: No History of Problems with Anesthesia: No NPO: Yes ASA Class: II Final Preanesthetic Review: No Changes in Pt Med Stat, Meds/Allgs Chart Reviewed, Consent Obtained/Reviewed and Anes Risks/Benef Reviewed Patient Risk: Low Procedure Risk: Low Anesthetic Plan Anesthetic Plan: MAC: and Agree w/ Assess. and Plan Disposition: Standard PACU
--- NOTE | 2025-08-21 07:32 | MHC.SHP ---
Pre-Procedural Eval Section A - 24 Hr Update-Section A only Date of Service: 08/21/25 The patient is an INPATIENT: No The patient has been examined within 24 hours of the surgical procedure. The History & Physical has been completed within 30 days and I have reviewed it.: Yes Section B - Complete if H&P > 30 days Chief Complaint: Obesity, unspecified Details of Present Illness: GERD Relevant Family History (Specify if Yes): No Relevant Social History: None Present Medications: None Medical History: No relevant PMH History of Previous Operations: No relevant previous surgery Allergies: Allergies Allergy/AdvReac Type Severity Reaction Status Date / Time amoxicillin Allergy Unknown rash Verified 07/13/25 11:11 naproxen Allergy Unknown asthma Verified 07/13/25 11:11 exacerbation Latex Allergy Unknown Unknown Uncoded 07/13/25 11:11 Review of Systems Sugical H&P ROS: Negative: Constitution, Cardiovascular, Respiratory, Neurological, Psychiatric, Hem-Onc, Allergic/Immunologic, Gastrointestinal, Genitourinary, Musculoskeletal, Integumentary, Endocrine and Eyes/Ears/Nose/Throat Exam Surgical H&P Exam: Normal: HEENT, Normal: Heart, Normal: Lungs, Normal: Extremities, Normal: Abdomen, Normal: Skin and Normal: Neurological Plan Diagnosis/Plan: Unchanged (EGD to assess etiology of GERD. Risks of bleeding and perforation were discussed with the patient and she is in agreement with the plan.) I have reviewed the history and physical and performed a pertinent physical examination on my patient. No changes have occurred unless specified. Time Spent With Patient Time: Total time managing care of this patient today ____ minutes.
--- NOTE | 2025-08-21 07:33 | PM.OP ---
Brief Operative Note Date of Service: 08/21/25 Pre-op diagnosis: GERD Post-op diagnosis: same Procedure: PROCEDURE DATE: 08/21/2025 PREOPERATIVE DIAGNOSIS: GERD POSTOPERATIVE DIAGNOSIS: ?Same as above. 1) small hiatal hernia, 2) Esophagitis PROCEDURE: [id number] with biopsies Surgeon: ?Giovanny Harvey M.D.. Ph.D. Control Area Operator: None ? Anesthesia: IV sedation Estimated blood loss: ?Minimal FINDINGS AND PROCEDURE: ? OPERATIVE INDICATIONS: ?The patient is a 40 year old female known to me who is interested in bariatric surgery. The patient has GERD. Based on this information I recommended an upper endoscopy to evaluate the patient's symptoms. Risks and complications of the surgery were discussed with the patient in advance particularly the possibility of perforation or bleeding that may require surgical intervention. The patient understood the risks and was in agreement with the plan. ? PROCEDURE: After informed consent was obtained by the patient, the patient was ?transferred to the Operating Room and was placed in the supine position.? After successful induction of IV sedation, a mouth block was inserted and the patient was placed in the left lateral decubitus position. An upper endoscopy was performed next, the oropharynx and esophagus appeared within the normal limits. There was a 2cm hiatal hernia. The z-line was irregular with tongues of gastric mucosa protruding into the esophagus. Two biopsies were obtained from the distal esophagus 2-3 cm proximal to the GE junction and two additional biopsies from the GE junction. The stomach was entered and it appeared to be of normal size. There was no gastritis. There was no stricture or ulcer. A biopsy was obtained from the gastric fundus and the antrum. No significant bleeding was noted from any of the biopsy sites. Retroflexion of the scope confirmed the presence of a small hiatal hernia. The scope was then advanced into the duodenum up to the 4th portion, which appeared to be normal as well. At that point the duodenum ?and the stomach were decompressed and the scope was withdrawn from the patient's mouth. The patient extubated and was transferred in stable condition to the Recovery Room for further care. I was present and performed all steps of the procedure. There were no residents to assist with this case. Giovanny Harvey M.D., Ph.D. Surgeon: Ben Harvey MD Anesthesia: MAC Was an Control Area Operator used for this Procedure?: No Estimated blood loss (mL): 0 IV fluids (mL): 400 Urine output (mL): 0 (No Cardoso to record output) Pathology: other (1) antrum x1, 2) fundus x1, 3) GE junction x2, 4) distal esophagus x2) Condition: stable Disposition: PACU
[2025-08-21 08:00] VITALS: BP 92/54; PULSE 61; RESP 16; TEMP 36.1; O2SAT 98
[2025-08-21 08:15] VITALS: BP 97/58; PULSE 49; RESP 16; O2SAT 96
[2025-08-21 08:21] VITALS: BP 105/63; PULSE 60; RESP 16; TEMP 36.1; O2SAT 96
== END 2025-08-21 08:57 | disposition home or self-care (01) ==
PROVIDERS: Nurse Practitioner; PCP Nurse Practitioner Family; Visit Provider Surgery
PROC: 0DJ08ZZ Inspection of Upper Intestinal Tract, Via Natural or Artificial Opening Endoscopic (ICD-10-PCS; CPT 43235; principal; 2025-08-21 07:30)
DX: K21.9 Gastro-esophageal reflux disease without esophagitis (principal); E66.9 Obesity, unspecified; Z68.37 Body mass index [BMI] 37.0-37.9, adult; K20.80 Other esophagitis without bleeding; K22.89 Other specified disease of esophagus; K44.9 Diaphragmatic hernia without obstruction or gangrene; J45.909 Unspecified asthma, uncomplicated; Z79.84 Long term (current) use of oral hypoglycemic drugs; Z79.899 Other long term (current) drug therapy; Z88.1 Allergy status to other antibiotic agents; Z88.6 Allergy status to analgesic agent; Z91.040 Latex allergy status; Z98.890 Other specified postprocedural states
CPT/HCPCS: 43239; 81025; 82947; 88305; 88342; J2704

== ENCOUNTER → 2025-08-21 06:00 | Outpatient (BNV) | payer OTHER, SELFPAY | PROVIDERS: PCP Nurse Practitioner Family; Visit Provider Surgery | DX: K21.9 Gastro-esophageal reflux disease without esophagitis (principal); K44.9 Diaphragmatic hernia without obstruction or gangrene; K20.90 Esophagitis, unspecified without bleeding | CPT/HCPCS: 43239 ==

== ENCOUNTER 2025-09-04 10:42 | Outpatient (AMB) | payer OTHER, SELFPAY ==
[2025-09-04 11:27] VITALS: BP 114/78; PULSE 74; O2SAT 97; BMI 36.6
--- NOTE | 2025-09-04 11:27 | MHC.OFFVIS ---
Vital Signs 09/04/25 11:27 Height 5 ft Weight 187 lb 6 oz BMI 36.6 BP 114/78 Blood Pressure Location Rt brachial Position Sitting Pulse 74 Pulse Source Pulse Oximeter Pulse Oximetry (%) 97 Oxygen Delivery Method Room Air Intake Visit Reasons: 3 mo follow up Intake Note: Patient presents follow up Sleep. Labs/HST in chart(AHI-12.1, ROBERTO-81%). Accompanied by: Self / Same As Patient Allergies amoxicillin Allergy (Unknown, Verified 09/04/25 11:30) rash naproxen Allergy (Unknown, Verified 09/04/25 11:30) asthma exacerbation Latex Allergy (Unknown, Uncoded 07/13/25 11:11) Unknown HPI Comments Details: 40 year old female with restless leg syndrome presents for a follow of of her home sleep study. 08/2025 reviewed HST c/w mild reno, AHI is 12 and oxygen below 90% for 2.7% of total sleep time. She is a very light sleeper and has multiple arousals through the night. She snores loudly, gasps for air with episodes of choking and coughing. She goes to bed at 10pm and wakes up at 5am, usually has one bathroom break. She wakes herself up due to rolling over from side to side, has carpal tunnels syndrome and trigger finger bilaterally which also causes arousals from sleep. She has morning headaches, clenches her jaws and grinds her teeth at night. She is a nose breather and tried a mouth guard which caused her to have dry mouth and she did not tolerate it. She has a normal amount of anxiety and stress with recent over-thinking and over analyzing life, as she is a deep thinker. She has been seeing weight management for bariatric procedure, she tried GLP-1s for 4 months and had lost 20lbs, then gained it all back. Her sleep patterns are worse the week before her menses and can not sleep through the night during that week. She has paresthesias, with RLS and twitching, jerking bilaterally in legs, causing chronic fatigue and fragmented sleep. She does not drink enough water, walks daily and is physically active both at work and home. [facility] Medical History Sleep apnea GERD (gastroesophageal reflux disease) BMI 37.0-37.9, adult Asthma Preeclampsia At high risk for breast cancer Surgical History Hx of hernia repair History of section History of ankle surgery (2006) Family History Father No problems noted. 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 Current occupational exposures/hazards: No Cognitive needs: No Hearing needs: No Vision needs: No Physical Exam Vital Signs: Last Vital Signs Pulse 74 09/04/25 11:27 BP 114/78 09/04/25 11:27 Pulse Ox 97 09/04/25 11:27 Oxygen Delivery Method Room Air 09/04/25 11:27 BMI result Body Mass Index 36.6 Const General: cooperative, comfortable and no acute distress Nutritional Appearance: obese Orientation/consciousness: patient oriented x3 HEENT Face and sinus: Yes face symmetric and Yes other (crooked bottom jaw - misaligned smile) Teeth and gingiva: other (mallampti score is 4) Throat: Yes other (mallampti score is 3) Eyes Pupils: Equal, round and reactive pupils present Neck Neck: Yes full ROM Resp Effort & Inspection: normal respiratory effort and able to speak in complete sentences Neuro General: patient oriented x3 and moves all extremities Cranial nerves: Yes Equal, round and reactive pupils present, Yes Normal accommodation reflex present, Yes Normal facial strength present, Yes Midline tongue present, Yes Ability to bilaterally rotate head present and Yes Ability to bilaterally elevate shoulders present Cognition (Neuro): normal cognition Gait exam (Neuro): Normal gait present Motor exam (neuro): 5/5 motor strength present throughout and Normal motor muscle tone present throughout Psych Appearance: grossly normal Thought process: Normal thought process present Thought content: Normal thought content present Results Reviewed Results Reviewed: HST c/w AHI of 12 and oxygen nadirs to 81%. airfit n30i mask chin strap, rx written for resmed. Labs reviewed with pt. Assessment & Plan Assessment & Plan (1) Excessive daytime sleepiness: Code(s): G47.19 - Other hypersomnia Category: Medical (2) Paresthesia of lower extremity: Code(s): R20.2 - Paresthesia of skin Category: Medical Plan HST reviewed with pt AHI is 12/hr and O2 nadirs to 85% for 11 min, with mild snoring, will start her on apap therapy [id number] with nasal pillow airfit n30 and chin straps and f/u for compliance. rx written to [facility]. Labs reviewed with pt. cbc/ cmp / tsh/ B12 /Ferritin / folate /mma / homocysteine is normal. A1c is elevated, peripheral neuropathy. RLS symptoms will monitor start magnesium 400mg po daily at bedtime daily may decrease to 3x per week if experiencing loose stools. Continue Vit D, low D levels. F/U in 3 months Medications: New magnesium oxide 400 mg PO DAILY 90 tabs 0RF 3 months Refilled cholecalciferol (vitamin D3) 50 mcg PO DAILY 90 tabs 1RF 90 days Patient Instructions: Please complete the following fasting labs to rule out deficiencies. CBC/CMP/ B12/ Vit D/ TSH/ Homocysteine and MMA/ Ferritin. Sleep Hygiene provided: set a scheduled bedtime and wake time to help regulate the circadian rhythm and balance the release of pituitary hormones. Sleep in a dark room, temperatures below 68 degrees, and no devices n bed. Limit caffeinated products 6 hours prior to bed, and limit fluids 2-4 hours prior to bed. Gentle night yoga, diffusing essential oils, and playing soft music can be relaxing. Coding Level of Care Code Est Pt Level 4 (44043) Diagnoses Excessive daytime sleepiness G47.19 Paresthesia of lower extremity R20.2
== END 2025-09-04 12:06 | disposition home or self-care (01) ==
LOC: HO.HSMS 10:43
PROVIDERS: PCP Nurse Practitioner Family; Visit Provider Physician Assistant Medical
DX: G47.19 Other hypersomnia (principal); R20.2 Paresthesia of skin
CPT/HCPCS: 99214